=== PATIENT | female | born 1995 | race Caucasian/White ===

== ENCOUNTER 2016-08-14 19:51 | Emergency (ER) | payer MEDICAID ==
[2016-08-14] MEDS ORDERED: Famotidine 20 MG/2 ML SDV IVPUSH ONE (20:08)
[2016-08-14] MEDS ORDERED: Sodium Chloride 0.9% 1,000 ML IV ONE (20:08)
[2016-08-14] MEDS ORDERED: Sodium Chloride 0.9% 2.5 ML Syringe FLUSH PRN (20:08)
[2016-08-14] MEDS ORDERED: Sodium Chloride 0.9% 10 ML Syringe FLUSH PRN (20:08)
[2016-08-14] MEDS ORDERED: methylPREDNISolone Sodium Succinate 125 MG/2 ML SDV IVPUSH ONE (20:08)
--- NOTE | 2016-08-14 20:14 | EDM.PDOC ---
ED HPI Allergic Reaction - General Chief Complaint: Allergic Reaction Stated Complaint: PT HAS ALLERGIC REACTION, 22WKS Time Seen by Provider: 08/14/16 20:03 - History of Present Illness INITIAL COMMENTS - FREE TEXT/NARRATIVE: HISTORY AND PHYSICAL: History of present illness: The patient is a 20-year-old female was a one para zero who is 22 weeks and follows with an OB in [place] and presents with symptoms of an allergic reaction after eating garlic at dinner at 7 PM, one hour ago. According to the patient she has not had any vaginal bleeding fevers chills coughing vomiting or diarrhea and was in her usual state of good health when they went to the restaurant and ate dinner where there was a lot of garlic. The patient states she has a known allergy to garlic but she is able to eat "small amounts" without having a reaction. The meal that she had had more garlic than she had anticipated. She presents with feeling somewhat short of breath and feeling overall internally agitated but she is not having any itching or rash which is classic for her reaction. She's not having any facial swelling difficulty speaking or swallowing. She says that what she is experiencing is her symptomatology for an allergic reaction but it is just less severe than usual. She did take Benadryl 50 mg by mouth prior to coming here. She is complaining of some intermittent abdominal pain "[place]" that she says she gets periodically every week but is experiencing that currently. The baby is moving. Review of systems: As per history of present illness and below otherwise all systems reviewed and negative. Past medical history: As per history of present illness and as reviewed below otherwise noncontributory. Surgical history: As per history of present illness and as reviewed below otherwise noncontributory. Social history: No reported history of drug or alcohol abuse. Family history: As per history of present illness and as reviewed below otherwise noncontributory. Physical exam: General: A well-developed well-nourished thin female who is nontoxic and speaking clearly in the ED without breathlessness. Her medicines have been noted by me. HEENT: Atraumatic, normocephalic, pupils reactive, negative for conjunctival pallor or scleral icterus, mucous membranes moist, throat clear, neck supple, nontender, trachea midline. There is no lip tongue or oropharyngeal swelling and no facial swelling is appreciated Lungs: Clear to auscultation, breath sounds equal bilaterally, chest nontender. No sensory muscle use work of breathing stridor or wheezing Heart: S1S2, regular, negative for clicks, rubs, or JVD. Abdomen: Soft, nondistended, nontender. Gravid uterus which is nontender Negative for masses or hepatosplenomegaly. Skin: No evidence of any rashes or urticaria or lesions and turgor is normal Genitourinary: Deferred. Rectal: Deferred. Extremities: Atraumatic, negative for cords or calf pain. Neurovascular unremarkable. Neuro: Awake, alert, oriented. Cranial nerves II through XII unremarkable. Cerebellum unremarkable. Motor and sensory unremarkable throughout. Exam nonfocal. Diagnostics: [] Therapeutics: Patient took Benadryl prior to arrival, IV fluids Pepcid Solu-Medrol Labor and delivery were contacted by our nurse manufacturing supervisor at 2007; they state that once we're done treating her to send her up to labor and delivery for evaluation of her abdominal cramping 2057: Patient is feeling improved so I will transfer the patient to labor and delivery. I have advised taking Benadryl every 6 hours for the next 24 hours but I do not feel that her symptoms are significant enough for her classic presentation to put her on home prednisone. She is comfortable with this care plan. Advised on reasons to return to the ER if needed. Impression: Allergic reaction mild stable ; second trimester with episodic abdominal pain to go to labor and delivery for evaluation Definitive disposition and diagnosis as appropriate pending reevaluation and review of above. - Related Data Allergies/ADRs: Allergies Allergy/AdvReac Type Severity Reaction Status Date / Time acetaminophen [From Vicodin] Allergy Nausea Verified 08/14/16 19:57 budesonide Allergy Numbness Verified 08/14/16 19:57 garlic Allergy Shortness Verified 08/14/16 19:57 of Breath hydrocodone [From Vicodin] Allergy Nausea Verified 08/14/16 19:57 Sulfa (Sulfonamide Allergy Rash Verified 08/14/16 19:57 Antibiotics) Home Meds: Home Meds FLUoxetine HCl [Fluoxetine] 20 mg PO DAILY 08/14/16 [History] Multivitamin [Multi-Vitamin Daily] 1 tab PO DAILY 08/14/16 [History] Ondansetron HCl [Zofran] 4 mg PO ASDIRECTED 08/14/16 [History] ED ROS ALLERGIC REACTION - Review of Systems Review Of Systems: ROS reveals no pertinent complaints other than HPI. ED EXAM GENERAL NO PERIP PULSE - Physical Exam Exam: See Below (See dictation) Course - Vital Signs Last Recorded V/S: Last Vital Signs Temp 36.6 C 08/14/16 19:59 Pulse 71 08/14/16 19:59 Resp 18 08/14/16 19:59 BP 119/64 08/14/16 19:59 Pulse Ox 100 08/14/16 19:59 - Orders/Labs/Meds Orders: Active Orders 24 hr Category Date Time Status Sodium Chloride 0.9% [Normal Saline] 1,000 ml Med 08/14/16 20:08 Active IV STAT Sodium Chloride 0.9% [Saline Flush] Med 08/14/16 20:08 Active 10 ml FLUSH ASDIRECTED PRN Sodium Chloride 0.9% [Saline Flush] Med 08/14/16 20:08 Active 2.5 ml FLUSH ASDIRECTED PRN Saline Lock Insert [OM.PC] Stat Oth 08/14/16 20:08 Ordered Medication Orders Sodium Chloride (Normal Saline) 1,000 mls @ 999 mls/hr IV STAT ONE Stop: 08/14/16 21:08 Last Admin: 08/14/16 20:28 Dose: 999 mls/hr Sodium Chloride (Saline Flush) 10 ml FLUSH ASDIRECTED PRN PRN Reason: Keep Vein Open Sodium Chloride (Saline Flush) 2.5 ml FLUSH ASDIRECTED PRN PRN Reason: Keep Vein Open Meds: Medications Generic Name Dose Route Start Last Admin Trade Name Freq PRN Reason Stop Dose Admin Sodium Chloride 1,000 mls @ 999 mls/hr 08/14/16 20:08 08/14/16 20:28 Normal Saline IV 08/14/16 21:08 999 mls/hr STAT ONE Administration Sodium Chloride 10 ml 08/14/16 20:08 Saline Flush FLUSH ASDIRECTED PRN Keep Vein Open Sodium Chloride 2.5 ml 08/14/16 20:08 Saline Flush FLUSH ASDIRECTED PRN Keep Vein Open Discontinued Medications Generic Name Dose Route Start Last Admin Trade Name Freq PRN Reason Stop Dose Admin Famotidine 20 mg 08/14/16 20:08 08/14/16 20:30 Pepcid IVPUSH 08/14/16 20:09 20 mg ONETIME ONE Administration Methylprednisolone Sodium Succinate 125 mg 08/14/16 20:08 08/14/16 20:29 Solu-Medrol IVPUSH 08/14/16 20:09 125 mg ONETIME ONE Administration Departure - Departure Time of Disposition: 21:00 Disposition: DC/Tfer to Other 70 Condition: good Clinical Impression: Allergic reaction Qualifiers: Encounter type: initial encounter Qualified Code(s): T78.40XA - Allergy, unspecified, initial encounter Abdominal pain during Qualifiers: Trimester: second trimester Qualified Code(s): O26.892 - Other specified related conditions, second trimester Referrals: PCP,None [Primary Care Provider] - - My Orders Last 24 Hours: My Active Orders 08/14/16 20:08 Sodium Chloride 0.9% [Normal Saline] 1,000 ml IV STAT Sodium Chloride 0.9% [Saline Flush] 10 ml FLUSH ASDIRECTED PRN Sodium Chloride 0.9% [Saline Flush] 2.5 ml FLUSH ASDIRECTED PRN Saline Lock Insert [OM.PC] Stat - Assessment/Plan Last 24 Hours: My Active Orders 08/14/16 20:08 Sodium Chloride 0.9% [Normal Saline] 1,000 ml IV STAT Sodium Chloride 0.9% [Saline Flush] 10 ml FLUSH ASDIRECTED PRN Sodium Chloride 0.9% [Saline Flush] 2.5 ml FLUSH ASDIRECTED PRN Saline Lock Insert [OM.PC] Stat
[2016-08-14 21:25] VITALS: BP 116/67
== END 2016-08-14 21:21 | disposition other institution (70) ==
LOC: MW.ED 19:51
DX: O99.512 Diseases of the respiratory system complicating pregnancy, second trimester (principal); R06.02 Shortness of breath; T78.1XXA Other adverse food reactions, not elsewhere classified, initial encounter; O26.892 Other specified pregnancy related conditions, second trimester; R10.9 Unspecified abdominal pain; Z3A.22 22 weeks gestation of pregnancy; Z88.2 Allergy status to sulfonamides; Z88.5 Allergy status to narcotic agent; Z91.018 Allergy to other foods; Z79.899 Other long term (current) drug therapy
CPT/HCPCS: 96361; 96374; 96375; 99284; J2930; J7040

== ENCOUNTER 2016-08-14 21:29 | Outpatient (CLI) | payer MEDICAID | END 2016-08-14 22:45 | disposition home or self-care (01) | LOC: MW.OBCHECK 21:29 → MW.OB 21:39 → MW.OBCHECK 22:45 | PROVIDERS: ATTEND Obstetrics & Gynecology | DX: O47.02 False labor before 37 completed weeks of gestation, second trimester (principal) ==

== ENCOUNTER 2017-03-16 19:44 | Emergency (ER) | payer SELFPAY ==
--- NOTE | 2017-03-16 20:00 | EDM.PDOC ---
ED HPI GENERAL MEDICAL PROBLEM - General Chief Complaint: Upper Extremity Injury/Pain Stated Complaint: PT HURT LT SHOULDER Time Seen by Provider: 03/16/17 19:58 Source of Information: Reports: Patient History Limitations: Reports: No Limitations - History of Present Illness INITIAL COMMENTS - FREE TEXT/NARRATIVE: History of present illness: [21-year-old female comes in complaining of left shoulder pain. Patient indicates that she was horsing around with her boyfriend and tripped over her dog and landed full at an acute angle causing severe pain in her left shoulder she apparently tried ice and heat to no avail so she came in to be evaluated.] Review of systems: As per history of present illness and below otherwise all systems reviewed and negative. Past medical history: As per history of present illness and as reviewed below otherwise noncontributory. Surgical history: As per history of present illness and as reviewed below otherwise noncontributory. Social history: No reported history of drug or alcohol abuse. Family history: As per history of present illness and as reviewed below otherwise noncontributory. Physical exam: HEENT: Atraumatic, normocephalic, pupils reactive, negative for conjunctival pallor or scleral icterus, mucous membranes moist, throat clear, neck supple, nontender, trachea midline. Lungs: Clear to auscultation, breath sounds equal bilaterally, chest nontender. Heart: S1S2, regular, negative for clicks, rubs, or JVD. Abdomen: Soft, nondistended, nontender. Negative for masses or hepatosplenomegaly. Negative for costovertebral tenderness. Pelvis: Stable nontender. Genitourinary: Deferred. Rectal: Deferred. Extremities: Atraumatic, negative for cords or calf pain. Significant amount of guarding with left shoulder keeping arm tight to the side Neuro: Awake, alert, oriented. Cranial nerves II through XII unremarkable. Cerebellum unremarkable. Motor and sensory unremarkable throughout. Exam nonfocal. X-ray is negative for shoulder or rib bony abnormality Diagnostics: [X-ray of the left shoulder and left ribs] Therapeutics: [Toradol, Norflex] Impression: [Contusion] Plan: [[id number] and sent] Definitive disposition and diagnosis as appropriate pending reevaluation and review of above. - Related Data Allergies Allergy/AdvReac Type Severity Reaction Status Date / Time acetaminophen [From Vicodin] Allergy Nausea Verified 03/16/17 20:59 budesonide Allergy Numbness Verified 03/16/17 20:59 garlic Allergy Shortness Verified 03/16/17 20:59 of Breath hydrocodone [From Vicodin] Allergy Nausea Verified 03/16/17 20:59 Sulfa (Sulfonamide Allergy Rash Verified 03/16/17 20:59 Antibiotics) Home Meds: Home Meds Multivitamin [Multi-Vitamin Daily] 1 tab PO DAILY 08/14/16 [History] Past Medical History HEENT History: Reports: None Cardiovascular History: Reports: None Respiratory History: Reports: None Gastrointestinal History: Reports: Other (See Below) Other Gastrointestinal History: chron's Genitourinary History: Reports: None 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: 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 History: Reports: None Neurological History: Reports: None Psychiatric History: Reports: Anxiety, OCD Endocrine/Metabolic History: Reports: None Hematologic History: Reports: None Oncologic (Cancer) History: Reports: None Dermatologic History: Reports: None - Infectious Disease History Infectious Disease History: Reports: None Social & Family History - Family History Family Medical History: Noncontributory - Tobacco Use Smoking Status *Q: Never Smoker - Caffeine Use Caffeine Use: Reports: Soda - Recreational Drug Use Recreational Drug Use: No Review of Systems - Review of Systems Review Of Systems: See Below (See history of present illness) ED EXAM, GENERAL - Physical Exam Exam: See Below (History of present illness) Course - Orders/Labs/Meds Orders: Active Orders 24 hr Category Date Time Status Ribs 2V w Chest Lt [CR] Stat Exams 03/16/17 20:34 Taken Shoulder Comp Lt [CR] Stat Exams 03/16/17 19:58 Taken Departure - Departure Time of Disposition: 21:03 Disposition: Home, Self-Care 01 Condition: Good Clinical Impression: Contusion - Discharge Information Referrals: PCP,None [Primary Care Provider] - Forms: ED Department Discharge Additional Instructions: The following information is given to patients seen in the emergency department who are being discharged to home. This information is to outline your options for follow-up care. We provide all patients seen in our emergency department with a follow-up referral. The need for follow-up, as well as the timing and circumstances, are variable depending upon the specifics of your emergency department visit. If you don't have a primary care physician on staff, we will provide you with a referral. We always advise you to contact your personal physician following an emergency department visit to inform them of the circumstance of the visit and for follow-up with them and/or the need for any referrals to a consulting specialist. The emergency department will also refer you to a specialist when appropriate. This referral assures that you have the opportunity for follow-up care with a specialist. All of these measure are taken in an effort to provide you with optimal care, which includes your follow-up. Under all circumstances we always encourage you to contact your private physician who remains a resource for coordinating your care. When calling for follow-up care, please make the office aware that this follow-up is from your recent emergency room visit. If for any reason you are refused follow-up, please contact the [facility] Emergency Department at and asked to speak to the emergency department charge nurse. Your shoulder and ribs are negative for fracture at this time the pain you're having would be consistent then with a contusion You may take [id number]-fyuiwqt pain medicine such as ibuprofen or Aleve as well as alternating ice and heat for 20 minutes a time to help you with your discomfort Follow-up with primary care provider one to 2 days Return to ED as needed as discussed - My Orders Last 24 Hours: My Active Orders 03/16/17 19:58 Shoulder Comp Lt [CR] Stat - Assessment/Plan Last 24 Hours: My Active Orders 03/16/17 19:58 Shoulder Comp Lt [CR] Stat
[2017-03-16] MEDS ORDERED: Ketorolac 60 MG/2 ML SDV IM ONE (21:11)
[2017-03-16 21:47] VITALS: BP 119/71
--- NOTE | 2017-03-17 14:06 | CR ---
EXAM DATE: 03/16/17 PATIENT'S AGE: 21 Patient: SHELLEY HALE Facility: [place], [place] Site . Site : 1995 Study: XRay Chest ribs w/ chest [id number]/14/2017 8:51:58 PM Ordering Physician: Doctor Peres Final Report: INDICATION: fall TECHNIQUE: Chest 1 view and left rib series COMPARISON: None FINDINGS: Cardiovascular and mediastinum: Heart size and vasculature are normal in caliber and appearance. Mediastinum is within normal limits. Lungs and pleural space: No focal consolidation. No sign of pleural effusion. No pneumothorax. Bones and soft tissues: No significant findings. IMPRESSION: No acute cardiopulmonary disease or left-sided rib abnormality Dictated by Donaldo Mcnally MD @ 03/16/2017 8:56:50 PM Dictated by: Donaldo Mcnally MD @ 03/16/2017 20:57:00 (Electronic Signature) Report Signed by Proxy. TIERNEY
--- NOTE | 2017-03-17 14:07 | CR ---
EXAM DATE: 03/16/17 PATIENT'S AGE: 21 Patient: SHELLEY HALE Facility: [place], [place] Site . Site : 1995 Study: XRay Shoulder [id number]/[id number]/2017 8:52:14 PM Ordering Physician: Doctor Peres Final Report: INDICATION: fall TECHNIQUE: Three views of the left shoulder COMPARISON: None FINDINGS: Bones: No fractures or bone lesions. Joint spaces: Unremarkable. Soft tissues: Unremarkable. IMPRESSION: No acute bony abnormality Dictated by Donaldo Mcnally MD @ 03/16/2017 8:57:34 PM Dictated by: Donaldo Mcnally MD @ 03/16/2017 20:57:40 (Electronic Signature) Report Signed by Proxy. M[facility] HOSPITALKiersten
== END 2017-03-16 21:47 | disposition home or self-care (01) ==
LOC: MW.ED 19:44
DX: S40.012A Contusion of left shoulder, initial encounter (principal); Z88.6 Allergy status to analgesic agent; Z88.5 Allergy status to narcotic agent; Z88.2 Allergy status to sulfonamides; W01.0XXA Fall on same level from slipping, tripping and stumbling without subsequent striking against object, initial encounter
CPT/HCPCS: 71101; 73030; 96372; 99283; J1885; J2360

== ENCOUNTER 2017-05-25 14:51 | Emergency (ER) | payer SELFPAY ==
[2017-05-25] MEDS ORDERED: Sodium Chloride 0.9% 2.5 ML Syringe FLUSH PRN (15:22)
[2017-05-25] MEDS ORDERED: Sodium Chloride 0.9% 10 ML Syringe FLUSH PRN (15:22)
--- NOTE | 2017-05-25 15:26 | EDM.PDOC ---
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 Past medical history: As per history of present illness and as reviewed below otherwise noncontributory. Surgical history: As per history of present illness and as reviewed below otherwise noncontributory. Social history: No reported history of drug or alcohol abuse. Family history: As per history of present illness and as reviewed below otherwise noncontributory. Physical exam: Alert and oriented female answering questions in full sentences without any shortness of breath denies need for pain medication at this time rates her pain 4/10. HEENT: Atraumatic, normocehpalic, pupils reactive, negative for conjunctival pallor or scleral icterus, mucous membranes moist, throat clear, neck supple, nontender, trachea midline. Lungs: Clear to auscultation, breath sounds equal bilaterally, chest non tender. Heart: S1S2, regular, negative for clicks, rubs, or JVD. Abdomen: Soft, nondistended, mildly tender. No rebound and no guarding. Negative for masses or hepatossplenmegaly. Negative for costovertebral tenderness. Pelvis: Stable nontender. Genitourinary: Deferred. Rectal: Deferred Extremities: Atraumatic, negative for cords or calf pain. Neurovascular unremarkable. Neuro: Awake, alert, oriented. Cranial nerves II through XII unremarkable. Cerebellum unremarkable. Motor and sensory unremarkable throughout. Exam nonfocal. Test results are unremarkable with suggests that this is a inflammation with her Crohn's disease Diagnostics: [cbc cmp ua us abd/pelvis non-ob] Therapeutics: [] Impression: [Abdominal pain likely Crohn's disease] Plan: []Discharged to home Follow up with your primary care provider Adrenal dose pack by prescription Definitive disposition and diagnosis as appropriate pending reevaluation and review of above. Onset: Gradual Duration: Week(s): Location: Reports: Abdomen Right lower abdomen Pain Score (Numeric/FACES): 3 - Related Data Allergies Allergy/AdvReac Type Severity Reaction Status Date / Time acetaminophen [From Vicodin] Allergy Nausea Verified 05/25/17 15:12 budesonide Allergy Numbness Verified 05/25/17 15:12 garlic Allergy Shortness Verified 05/25/17 15:12 of Breath hydrocodone [From Vicodin] Allergy Nausea Verified 05/25/17 15:12 Sulfa (Sulfonamide Allergy Rash Verified 05/25/17 15:12 Antibiotics) pine trees Allergy Hives Uncoded 05/25/17 15:12 Home Meds: Home Meds buPROPion [Wellbutrin] 25 mg PO DAILY 05/25/17 [History] Past Medical History HEENT History: Reports: None Cardiovascular History: Reports: None Respiratory History: Reports: Asthma Gastrointestinal History: Reports: Other (See Below) Other Gastrointestinal History: chron's Genitourinary History: Reports: None 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: 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 History: Reports: None Neurological History: Reports: None Psychiatric History: Reports: Anxiety, Depression, OCD Endocrine/Metabolic History: Reports: None Hematologic History: Reports: None Oncologic (Cancer) History: Reports: None Dermatologic History: Reports: None - Infectious Disease History Infectious Disease History: Reports: None Social & Family History - Family History Family Medical History: Noncontributory Other Dermatologic Family History: ovarian CA - Tobacco Use Smoking Status *Q: Never Smoker Years of Tobacco use: 4 Packs/Tins Daily: 1 Second Hand Smoke Exposure: No - Caffeine Use Caffeine Use: Reports: Soda, Tea - Recreational Drug Use Recreational Drug Use: Yes Recreational Drug Type: Reports: Marijuana/Hashish Recreational Drug Use Frequency: Weekly ED ROS GENERAL - Review of Systems Review Of Systems: ROS reveals no pertinent complaints other than HPI. ED EXAM, RENAL/ - Physical Exam Exam: See Below (see dictation) Course - Vital Signs Last Recorded V/S: Last Vital Signs Temp 36.6 C 05/25/17 15:09 Pulse 110 H 05/25/17 15:09 Resp 18 05/25/17 15:09 BP 119/68 05/25/17 15:09 Pulse Ox 100 05/25/17 15:09 - Orders/Labs/Meds Orders: Active Orders 24 hr Category Date Time Status Sodium Chloride 0.9% [Saline Flush] Med 05/25/17 15:22 Active 10 ml FLUSH ASDIRECTED PRN Sodium Chloride 0.9% [Saline Flush] Med 05/25/17 15:22 Active 2.5 ml FLUSH ASDIRECTED PRN Saline Lock Insert [OM.PC] Stat Oth 05/25/17 15:22 Ordered Medication Orders Sodium Chloride (Saline Flush) 10 ml FLUSH ASDIRECTED PRN PRN Reason: Keep Vein Open Sodium Chloride (Saline Flush) 2.5 ml FLUSH ASDIRECTED PRN PRN Reason: Keep Vein Open Labs: Laboratory Tests 05/25/17 05/25/17 05/25/17 Range/Units 15:35 15:35 15:35 WBC 9.60 (4.0-11.0) K/uL RBC 4.14 L (4.30-5.90) M/uL Hgb 12.3 (12.0-16.0) g/dL Hct 37.0 (36.0-46.0) % MCV 89.4 (80.0-98.0) fL MCH 29.7 (27.0-32.0) pg MCHC 33.2 (31.0-37.0) g/dL RDW Std Deviation 43.6 (28.0-62.0) fl RDW Coeff of Zaid 13 (11.0-15.0) % Plt Count 339 (150-400) K/uL MPV 11.60 (7.40-12.00) fL Neut % (Auto) 63.6 (48.0-80.0) % Lymph % (Auto) 26.0 (16.0-40.0) % [place] % (Auto) 6.8 (0.0-15.0) % Eos % (Auto) 3.0 (0.0-7.0) % Baso % (Auto) 0.6 (0.0-1.5) % Neut # (Auto) 6.1 H (1.4-5.7) K/uL Lymph # (Auto) 2.5 H (0.6-2.4) K/uL [place] # (Auto) 0.7 (0.0-0.8) K/uL Eos # (Auto) 0.3 (0.0-0.7) K/uL Baso # (Auto) 0.1 (0.0-0.1) K/uL Nucleated RBC % 0.0 /100WBC Nucleated RBCs # 0 K/uL Sodium 142 (136-146) mmol/L Potassium 3.7 (3.5-5.1) mmol/L Chloride 107 (98-110) mmol/L Carbon Dioxide 25 (21-31) mmol/L BUN 7 (6.0-23.0) mg/dL Creatinine 0.7 (0.6-1.5) mg/dL Est Cr Clr Drug Dosing 106.05 mL/min Estimated GFR (MDRD) > 60.0 ml/min Glucose 92 (60-110) mg/dL Calcium 9.0 (8.8-10.8) mg/dL Total Bilirubin 0.4 (0.1-1.5) mg/dL AST 12 (5-40) IU/L ALT 9 (8-54) IU/L Alkaline Phosphatase 91 (40-150) Total Protein 6.9 (6.0-8.0) g/dL Albumin 4.0 (3.5-5.0) g/dL Globulin 2.9 (2.0-3.5) g/dL Albumin/Globulin Ratio 1.4 (1.3-2.8) Urine Color YELLOW Urine Appearance CLEAR Urine pH 8.0 (5.0-8.0) Ur Specific [place] 1.010 (1.001-1.035) Urine Protein NEGATIVE (NEGATIVE) mg/dL Urine Glucose (UA) NEGATIVE (NEGATIVE) mg/dL Urine Ketones NEGATIVE (NEGATIVE) mg/dL Urine Occult Blood NEGATIVE (NEGATIVE) Urine Nitrite NEGATIVE (NEGATIVE) Urine Bilirubin NEGATIVE (NEGATIVE) Urine Urobilinogen 0.2 (<2.0) EU/dL Ur Leukocyte Esterase NEGATIVE (NEGATIVE) Urine RBC 0-1 (0-2/HPF) Urine WBC 0-1 (0-5/HPF) Ur Epithelial Cells OCCASIONAL (NONE-FEW) Urine Bacteria RARE (NEGATIVE) Meds: Medications Generic Name Dose Route Start Last Admin Trade Name Freq PRN Reason Stop Dose Admin Sodium Chloride 10 ml 05/25/17 15:22 Saline Flush FLUSH ASDIRECTED PRN Keep Vein Open Sodium Chloride 2.5 ml 05/25/17 15:22 Saline Flush FLUSH ASDIRECTED PRN Keep Vein Open Departure - Departure Time of Disposition: 16:50 Disposition: Home, Self-Care 01 Condition: Good Clinical Impression: Abdominal pain Qualifiers: Abdominal location: right lower quadrant Qualified Code(s): R10.31 - Right lower quadrant pain - Discharge Information Referrals: PCP,None [Primary Care Provider] - Forms: ED Department Discharge - My Orders Last 24 Hours: My Active Orders 05/25/17 15:22 Sodium Chloride 0.9% [Saline Flush] 10 ml FLUSH ASDIRECTED PRN Sodium Chloride 0.9% [Saline Flush] 2.5 ml FLUSH ASDIRECTED PRN Saline Lock Insert [OM.PC] Stat - Assessment/Plan Last 24 Hours: My Active Orders 05/25/17 15:22 Sodium Chloride 0.9% [Saline Flush] 10 ml FLUSH ASDIRECTED PRN Sodium Chloride 0.9% [Saline Flush] 2.5 ml FLUSH ASDIRECTED PRN Saline Lock Insert [OM.PC] Stat
[2017-05-25 16:16] LABS: CHLORIDE,CL 107 mmol/L (98-110); SODIUM,NA 142 mmol/L (136-146)
--- NOTE | 2017-05-25 16:31 | US ---
EXAMINATION: Transabdominal pelvic ultrasound HISTORY: Pain COMPARISON: None TECHNIQUE: Grayscale, color Doppler, and spectral Doppler imaging obtained transabdominally. FINDINGS: The uterus is normal in size, contour, and echogenicity with an IUD noted. Endometrial stri pe otherwise measures 5 mm. Trace physiologic free fluid. Both the left and right ovaries are normal size, contour, and echogenicity demonstrating normal color and spectral Doppler flow. Simple 2.9 cm left ovarian cyst is noted. IMPRESSION: 1. Grossly unremarkable pelvic ultrasound. 2. IUD noted within the uterus in place.
[2017-05-25 17:03] VITALS: BP 109/64
== END 2017-05-25 17:03 | disposition home or self-care (01) ==
LOC: MW.ED 14:51
DX: R10.31 Right lower quadrant pain (principal); Z88.8 Allergy status to other drugs, medicaments and biological substances; Z88.2 Allergy status to sulfonamides; Z91.048 Other nonmedicinal substance allergy status; Z79.899 Other long term (current) drug therapy
CPT/HCPCS: 36415; 76856; 76856-26; 80053; 81001; 85025; 99283; 99284-25

== ENCOUNTER 2017-06-19 21:24 | Observation (INO) | payer SELFPAY ==
--- NOTE | 2017-06-19 21:37 | EDM.PDOC ---
ED HPI GENERAL MEDICAL PROBLEM - General Chief Complaint: Abdominal Pain Stated Complaint: CHROMES DISEASE FLARE UP Time Seen by Provider: 06/19/17 21:32 - History of Present Illness INITIAL COMMENTS - FREE TEXT/NARRATIVE: HISTORY AND PHYSICAL: History of present illness: Patient's 21-year-old female history of Crohn's disease presents with a concern of abdominal pain she states this is consistent with her prior Crohn's exacerbations that she has been relatively asymptomatic during her recent past . She's had nausea and vomiting with abdominal pain she denies fever chills diarrhea or other complaints at this point. She denies urinary symptoms vaginal discharge or irregular bleeding Review of systems: As per history of present illness and below otherwise all systems reviewed and negative. Past medical history: As per history of present illness and as reviewed below otherwise noncontributory. Surgical history: As per history of present illness and as reviewed below otherwise noncontributory. Social history: No reported history of drug or alcohol abuse. Family history: As per history of present illness and as reviewed below otherwise noncontributory. Physical exam: HEENT: Atraumatic, normocephalic, pupils reactive, negative for conjunctival pallor or scleral icterus, mucous membranes moist, throat clear, neck supple, nontender, trachea midline. Lungs: Clear to auscultation, breath sounds equal bilaterally, chest nontender. Heart: S1S2, regular, negative for clicks, rubs, or JVD. Abdomen: Soft, nondistended, no localized tenderness. Negative for masses or hepatosplenomegaly. Negative for costovertebral tenderness. Pelvis: Stable nontender. Genitourinary: Deferred. Rectal: Deferred. Extremities: Atraumatic, negative for cords or calf pain. Neurovascular unremarkable. Neuro: Awake, alert, oriented. Cranial nerves II through XII unremarkable. Cerebellum unremarkable. Motor and sensory unremarkable throughout. Exam nonfocal. Diagnostics: CBC CMP UA hCG CRP CT abdomen and pelvis Therapeutics: Normal saline 1 L bolus Zofran 4 mg IV when necessary Impression: #1 abdominal pain #2 history of Crohn's disease Definitive disposition and diagnosis as appropriate pending reevaluation and review of above. Abdominal Pain Score (Numeric/FACES): 5 - Related Data Allergies Allergy/AdvReac Type Severity Reaction Status Date / Time acetaminophen [From Vicodin] Allergy Nausea Verified 05/25/17 15:12 budesonide Allergy Numbness Verified 05/25/17 15:12 garlic Allergy Shortness Verified 05/25/17 15:12 of Breath hydrocodone [From Vicodin] Allergy Nausea Verified 05/25/17 15:12 Sulfa (Sulfonamide Allergy Rash Verified 05/25/17 15:12 Antibiotics) pine trees Allergy Hives Uncoded 05/25/17 15:12 Home Meds: Home Meds buPROPion [Wellbutrin] 25 mg PO DAILY 05/25/17 [History] Past Medical History HEENT History: Reports: None Cardiovascular History: Reports: None Respiratory History: Reports: Asthma Gastrointestinal History: Reports: Other (See Below) Other Gastrointestinal History: chron's Genitourinary History: Reports: None 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: 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 History: Reports: None Neurological History: Reports: None Psychiatric History: Reports: Anxiety, Depression, OCD Endocrine/Metabolic History: Reports: None Hematologic History: Reports: None Oncologic (Cancer) History: Reports: None Dermatologic History: Reports: None - Infectious Disease History Infectious Disease History: Reports: None Social & Family History - Family History Family Medical History: Noncontributory Other Dermatologic Family History: ovarian CA - Tobacco Use Smoking Status *Q: Never Smoker Years of Tobacco use: 4 Packs/Tins Daily: 1 Second Hand Smoke Exposure: No - Caffeine Use Caffeine Use: Reports: Soda, Tea - Recreational Drug Use Recreational Drug Use: Yes Recreational Drug Type: Reports: Marijuana/Hashish Recreational Drug Use Frequency: Weekly ED ROS GENERAL - Review of Systems Review Of Systems: ROS reveals no pertinent complaints other than HPI. ED EXAM, GENERAL - Physical Exam Exam: See Below (See dictation) Course - Vital Signs Last Recorded V/S: Last Vital Signs Temp 37.4 C 06/19/17 21:24 Pulse 105 H 06/19/17 21:24 Resp 16 06/19/17 21:24 BP 128/81 06/19/17 21:24 Pulse Ox 100 06/19/17 21:24 - Orders/Labs/Meds Orders: Active Orders 24 hr Category Date Time Status Abdomen Pelvis wo Cont [CT] Stat Exams 06/19/17 21:37 Taken Labs: Laboratory Tests 06/19/17 06/19/17 06/19/17 Range/Units 21:40 21:40 22:10 WBC 14.36 H (4.0-11.0) K/uL RBC 4.40 (4.30-5.90) M/uL Hgb 13.0 (12.0-16.0) g/dL Hct 38.5 (36.0-46.0) % MCV 87.5 (80.0-98.0) fL MCH 29.5 (27.0-32.0) pg MCHC 33.8 (31.0-37.0) g/dL RDW Std Deviation 42.4 (28.0-62.0) fl RDW Coeff of Zaid 13 (11.0-15.0) % Plt Count 465 H (150-400) K/uL MPV 11.10 (7.40-12.00) fL Neut % (Auto) 70.6 (48.0-80.0) % Lymph % (Auto) 19.0 (16.0-40.0) % [place] % (Auto) 8.1 (0.0-15.0) % Eos % (Auto) 2.0 (0.0-7.0) % Baso % (Auto) 0.3 (0.0-1.5) % Neut # (Auto) 10.1 H (1.4-5.7) K/uL Lymph # (Auto) 2.7 H (0.6-2.4) K/uL [place] # (Auto) 1.2 H (0.0-0.8) K/uL Eos # (Auto) 0.3 (0.0-0.7) K/uL Baso # (Auto) 0.1 (0.0-0.1) K/uL Nucleated RBC % 0.0 /100WBC Nucleated RBCs # 0 K/uL Sodium 140 (136-146) mmol/L Potassium 3.8 (3.5-5.1) mmol/L Chloride 105 (98-110) mmol/L Carbon Dioxide 25 (21-31) mmol/L BUN 11 (6.0-23.0) mg/dL Creatinine 0.7 (0.6-1.5) mg/dL Est Cr Clr Drug Dosing 106.05 mL/min Estimated GFR (MDRD) > 60.0 ml/min Glucose 99 (60-110) mg/dL Calcium 9.3 (8.8-10.8) mg/dL Total Bilirubin 0.4 (0.1-1.5) mg/dL AST 11 (5-40) IU/L ALT 9 (8-54) IU/L Alkaline Phosphatase 104 (40-150) C-Reactive Protein 3.75 H (0.0-0.5) mg/dL Total Protein 7.1 (6.0-8.0) g/dL Albumin 4.1 (3.5-5.0) g/dL Globulin 3.0 (2.0-3.5) g/dL Albumin/Globulin Ratio 1.4 (1.3-2.8) Lipase 14 (7-80) U/L Urine Color YELLOW Urine Appearance CLEAR Urine pH 6.0 (5.0-8.0) Ur Specific [place] 1.020 (1.001-1.035) Urine Protein NEGATIVE (NEGATIVE) mg/dL Urine Glucose (UA) NEGATIVE (NEGATIVE) mg/dL Urine Ketones NEGATIVE (NEGATIVE) mg/dL Urine Occult Blood NEGATIVE (NEGATIVE) Urine Nitrite NEGATIVE (NEGATIVE) Urine Bilirubin NEGATIVE (NEGATIVE) Urine Urobilinogen 1.0 (<2.0) EU/dL Ur Leukocyte Esterase NEGATIVE (NEGATIVE) Urine RBC 0-2 (0-2/HPF) Urine WBC 1-3 (0-5/HPF) Ur Epithelial Cells FEW (NONE-FEW) Amorphous Sediment FEW (NEGATIVE) Urine Bacteria FEW (NEGATIVE) Urine Mucus MODERATE (NONE-MOD) Urine HCG, Qual (NEGATIVE) 06/19/17 Range/Units 22:16 WBC (4.0-11.0) K/uL RBC (4.30-5.90) M/uL Hgb (12.0-16.0) g/dL Hct (36.0-46.0) % MCV (80.0-98.0) fL MCH (27.0-32.0) pg MCHC (31.0-37.0) g/dL RDW Std Deviation (28.0-62.0) fl RDW Coeff of Zaid (11.0-15.0) % Plt Count (150-400) K/uL MPV (7.40-12.00) fL Neut % (Auto) (48.0-80.0) % Lymph % (Auto) (16.0-40.0) % [place] % (Auto) (0.0-15.0) % Eos % (Auto) (0.0-7.0) % Baso % (Auto) (0.0-1.5) % Neut # (Auto) (1.4-5.7) K/uL Lymph # (Auto) (0.6-2.4) K/uL [place] # (Auto) (0.0-0.8) K/uL Eos # (Auto) (0.0-0.7) K/uL Baso # (Auto) (0.0-0.1) K/uL Nucleated RBC % /100WBC Nucleated RBCs # K/uL Sodium (136-146) mmol/L Potassium (3.5-5.1) mmol/L Chloride (98-110) mmol/L Carbon Dioxide (21-31) mmol/L BUN (6.0-23.0) mg/dL Creatinine (0.6-1.5) mg/dL Est Cr Clr Drug Dosing mL/min Estimated GFR (MDRD) ml/min Glucose (60-110) mg/dL Calcium (8.8-10.8) mg/dL Total Bilirubin (0.1-1.5) mg/dL AST (5-40) IU/L ALT (8-54) IU/L Alkaline Phosphatase (40-150) C-Reactive Protein (0.0-0.5) mg/dL Total Protein (6.0-8.0) g/dL Albumin (3.5-5.0) g/dL Globulin (2.0-3.5) g/dL Albumin/Globulin Ratio (1.3-2.8) Lipase (7-80) U/L Urine Color Urine Appearance Urine pH (5.0-8.0) Ur Specific [place] (1.001-1.035) Urine Protein (NEGATIVE) mg/dL Urine Glucose (UA) (NEGATIVE) mg/dL Urine Ketones (NEGATIVE) mg/dL Urine Occult Blood (NEGATIVE) Urine Nitrite (NEGATIVE) Urine Bilirubin (NEGATIVE) Urine Urobilinogen (<2.0) EU/dL Ur Leukocyte Esterase (NEGATIVE) Urine RBC (0-2/HPF) Urine WBC (0-5/HPF) Ur Epithelial Cells (NONE-FEW) Amorphous Sediment (NEGATIVE) Urine Bacteria (NEGATIVE) Urine Mucus (NONE-MOD) Urine HCG, Qual NEGATIVE (NEGATIVE) Meds: Medications Discontinued Medications Generic Name Dose Route Start Last Admin Trade Name Hattie PRN Reason Stop Dose Admin Hydromorphone HCl 2 mg 06/19/17 23:13 06/19/17 23:20 Dilaudid IVPUSH 06/19/17 23:14 2 mg ONETIME ONE Administration Sodium Chloride 1,000 mls @ 999 mls/hr 06/19/17 21:38 06/19/17 21:46 Normal Saline IV 06/19/17 22:38 999 mls/hr STAT ONE Administration Ondansetron HCl 4 mg 06/19/17 23:15 06/19/17 23:20 Zofran IVPUSH 06/19/17 23:16 4 mg ONETIME ONE Administration Departure - Departure Time of Disposition: 23:39 Disposition: Refer to Observation Condition: Good Clinical Impression: Exacerbation of Crohn's disease - Discharge Information Referrals: PCP,None [Primary Care Provider] - Forms: ED Department Discharge - My Orders Last 24 Hours: My Active Orders 06/19/17 21:37 Abdomen Pelvis wo Cont [CT] Stat - Assessment/Plan Last 24 Hours: My Active Orders 06/19/17 21:37 Abdomen Pelvis wo Cont [CT] Stat
[2017-06-19] MEDS ORDERED: Sodium Chloride 0.9% 1,000 ML IV ONE (21:38)
[2017-06-19 22:10] LABS: CHLORIDE,CL 105 mmol/L (98-110); SODIUM,NA 140 mmol/L (136-146)
[2017-06-19] MEDS ORDERED: HYDROmorphone 2 MG/ML SDV IVPUSH ONE (23:13)
[2017-06-19] MEDS ORDERED: Ondansetron 4 MG/2 ML SDV IVPUSH ONE (23:15)
[2017-06-19] MEDS ORDERED: methylPREDNISolone Sodium Succinate 125 MG/2 ML SDV IVPUSH ONE (23:45)
[2017-06-19] MEDS ORDERED: methylPREDNISolone Sodium Succinate 125 MG/2 ML SDV ONE (23:45)
[2017-06-20] MEDS: Sodium Chloride 0.9% 1,000 ML IV SCH ×3 (01:38→21:18)
[2017-06-20] MEDS: Ciprofloxacin in D5W 400 MG in Premix Bag 1 BAG IV SCH ×4 (01:51→12:09)
[2017-06-20] MEDS: metroNIDAZOLE/Normal Saline 500 MG in Premix Bag 1 BAG IV SCH ×3 (02:55→17:19)
[2017-06-20] MEDS: HYDROmorphone 1 MG/ML Syringe IVPUSH PRN ×5 (05:42→22:47)
[2017-06-20 06:38] LABS: CHLORIDE,CL 110 mmol/L (98-110); SODIUM,NA 139 mmol/L (136-146)
[2017-06-20] MEDS: methylPREDNISolone Sodium Succinate 40 MG/1 ML SDV IVPUSH SCH (12:08)
--- NOTE | 2017-06-20 12:08 | PCM.HP ---
H&P History of Present Illness - History of Present Illness Initial Comments - Free Text/Narative: 21 yo female with pmh of Crohn's disease who presents with four day history of abdominal pain and diarrhea. Yesterday she started vomiting. She is on no medications for her Crohn's disease and had not had a flair for over a year and a half. She reports some fevers and chills. She denies any shortness of breath or cough. CT scan of abdomen reported terminal ileitis. Abdominal Pain Score (Numeric/FACES): 8 - Related Data Allergies/Adverse Reactions: Allergies Allergy/AdvReac Type Severity Reaction Status Date / Time acetaminophen [From Vicodin] Allergy Nausea Verified 05/25/17 15:12 budesonide Allergy Numbness Verified 05/25/17 15:12 garlic Allergy Shortness Verified 05/25/17 15:12 of Breath hydrocodone [From Vicodin] Allergy Nausea Verified 05/25/17 15:12 Sulfa (Sulfonamide Allergy Rash Verified 05/25/17 15:12 Antibiotics) pine trees Allergy Hives Uncoded 05/25/17 15:12 Home Medications: Home Meds buPROPion [Wellbutrin] 25 mg PO DAILY 05/25/17 [History] Past Medical History - Past Health History Medical/Surgical History: Denies Medical/Surgical History HEENT History: Reports: None Cardiovascular History: Reports: None Respiratory History: Reports: Asthma Gastrointestinal History: Reports: Other (See Below) Other Gastrointestinal History: chron's Genitourinary History: Reports: None 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: 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 History: Reports: Back Pain, Chronic Neurological History: Reports: None Psychiatric History: Reports: Anxiety, Depression, OCD Endocrine/Metabolic History: Reports: None Hematologic History: Reports: None Oncologic (Cancer) History: Reports: None Dermatologic History: Reports: None - Infectious Disease History Infectious Disease History: Reports: None - Past Surgical History GI Surgical History: Reports: Colonoscopy, EGD Social & Family History - Family History Family Medical History: Noncontributory Other Dermatologic Family History: ovarian CA - Tobacco Use Smoking Status *Q: Former Smoker Years of Tobacco use: 4 Packs/Tins Daily: 1 Used Tobacco, but Quit: Yes Month Tobacco Last Used: March Tobacco Use Comment: former smoker, last smoke 2016 Second Hand Smoke Exposure: No - Caffeine Use Caffeine Use: Reports: Soda - Recreational Drug Use Recreational Drug Use: No Recreational Drug Type: Reports: Marijuana/Hashish, Other (see below) Other Recreational Drug Type: patient verbalized NCBD cream for her back that contains Marijuana Recreational Drug Use Frequency: Weekly H&P Review of Systems - Review of Systems: Review Of Systems: ROS reveals no pertinent complaints other than HPI. Exam - Exam Exam: See Below - Vital Signs Vital Signs: Last Vital Signs Temp 36.7 C 06/20/17 08:00 Pulse 77 06/20/17 08:00 Resp 14 06/20/17 08:00 BP 123/79 06/20/17 08:00 Pulse Ox 99 06/20/17 08:00 Weight: 53.342 kg - Exam General: Alert, Oriented Lungs: Clear to Auscultation, Normal Respiratory Effort Cardiovascular: Regular Rate, Regular Rhythm GI/Abdominal Exam: Soft, Non-Tender, No Distention Extremities: Non-Tender, No Pedal Edema Skin: Warm, Dry, Intact Neurological: No: Focal Deficit - Patient Data Lab Results Last 24 hrs: Laboratory Results - last 24 hr 06/20/17 06/20/17 Range/Units 06:04 06:04 WBC 13.12 H (4.0-11.0) K/uL RBC 4.17 L (4.30-5.90) M/uL Hgb 12.3 (12.0-16.0) g/dL Hct 36.5 (36.0-46.0) % MCV 87.5 (80.0-98.0) fL MCH 29.5 (27.0-32.0) pg MCHC 33.7 (31.0-37.0) g/dL RDW Std Deviation 42.0 (28.0-62.0) fl RDW Coeff of Zaid 13 (11.0-15.0) % Plt Count 419 H (150-400) K/uL MPV 11.10 (7.40-12.00) fL Neut % (Auto) 93.3 H (48.0-80.0) % Lymph % (Auto) 5.7 L (16.0-40.0) % [place] % (Auto) 0.8 (0.0-15.0) % Eos % (Auto) 0.0 (0.0-7.0) % Baso % (Auto) 0.2 (0.0-1.5) % Neut # (Auto) 12.3 H (1.4-5.7) K/uL Lymph # (Auto) 0.8 (0.6-2.4) K/uL [place] # (Auto) 0.1 (0.0-0.8) K/uL Eos # (Auto) 0.0 (0.0-0.7) K/uL Baso # (Auto) 0.0 (0.0-0.1) K/uL Nucleated RBC % 0.0 /100WBC Nucleated RBCs # 0 K/uL Sodium 139 (136-146) mmol/L Potassium 3.5 (3.5-5.1) mmol/L Chloride 110 (98-110) mmol/L Carbon Dioxide 20 L (21-31) mmol/L BUN 9 (6.0-23.0) mg/dL Creatinine 0.7 (0.6-1.5) mg/dL Est Cr Clr Drug Dosing 106.01 mL/min Estimated GFR (MDRD) > 60.0 ml/min Glucose 141 H (60-110) mg/dL Calcium 8.8 (8.8-10.8) mg/dL Total Bilirubin 0.4 (0.1-1.5) mg/dL AST 13 (5-40) IU/L ALT 10 (8-54) IU/L Alkaline Phosphatase 100 (40-150) Total Protein 6.5 (6.0-8.0) g/dL Albumin 3.7 (3.5-5.0) g/dL Globulin 2.8 (2.0-3.5) g/dL Albumin/Globulin Ratio 1.3 (1.3-2.8) Result Diagrams: 06/20/17 06:04 06/20/17 06:04 *Q Meaningful Use (ADM) - VTE *Q VTE Criteria *Q: - Stroke *Q Stroke Criteria *Q: - AMI *Q AMI Criteria *Q: Problem List Initiated/Reviewed/Updated: Yes Orders Last 24hrs: Active Orders 24 hr Category Date Time Status Antiembolic Devices [RC] PER UNIT ROUTINE Care 06/20/17 12:03 Ordered Intake and Output [RC] QSHIFT Care 06/20/17 12:03 Ordered Oxygen Therapy [RC] PRN Care 06/20/17 12:02 Ordered Up ad Marianne [RC] ASDIRECTED Care 06/20/17 12:02 Ordered VTE/DVT Education [RC] PER UNIT ROUTINE Care 06/20/17 12:02 Ordered Vital Signs [RC] Q4H Care 06/20/17 12:02 Ordered Clear Liquid Diet [DIET] Diet 06/20/17 Dinner Ordered Clear Liquid Diet [DIET] Diet 06/20/17 Lunch Active CBC WITH AUTO DIFF [HEME] AM Lab 06/21/17 05:11 Ordered COMPREHENSIVE METABOLIC PN,CMP [CHEM] AM Lab 06/21/17 05:11 Ordered Ciprofloxacin in D5W [Cipro in D5W 400 MG/200 ML] 400 Med 06/20/17 01:00 Active mg Premix Bag 1 bag IV Q12H HYDROmorphone [Dilaudid] Med 06/20/17 02:00 Active 1 mg IVPUSH Q3H PRN Ondansetron [Zofran] Med 06/20/17 03:00 Active 4 mg IVPUSH Q3H PRN Sodium Chloride 0.9% [Normal Saline] 1,000 ml Med 06/20/17 01:30 Active IV ASDIRECTED methylPREDNISolone Sod Succ [Solu-MEDROL] Med 06/20/17 12:15 Ordered 40 mg IVPUSH DAILY metroNIDAZOLE/Normal Saline [Flagyl 500 MG in NS 100 ML Med 06/20/17 02:00 Active ] 500 mg Premix Bag 1 bag IV Q8H Sequential Compression Device [OM.PC] Per Unit Routine Oth 06/20/17 12:03 Ordered Resuscitation Status Routine Resus Stat 06/20/17 12:02 Ordered Medication Orders Hydromorphone HCl (Dilaudid) 1 mg IVPUSH Q3H PRN PRN Reason: Pain Last Admin: 06/20/17 08:13 Dose: 1 mg Admin: 06/20/17 05:42 Dose: 1 mg Ciprofloxacin/Dextrose 400 mg/ (Premix) 200 mls @ 200 mls/hr IV Q12H [facility] Last Infusion: 06/20/17 02:54 Dose: 200 mls/hr Admin: 06/20/17 01:51 Dose: 200 mls/hr Metronidazole 500 mg/ Premix 100 mls @ 100 mls/hr IV Q8H [facility] Last Admin: 06/20/17 10:17 Dose: 100 mls/hr Infusion: 06/20/17 04:00 Dose: 100 mls/hr Admin: 06/20/17 02:55 Dose: 100 mls/hr Sodium Chloride (Normal Saline) 1,000 mls @ 125 mls/hr IV ASDIRECTED [facility] Last Admin: 06/20/17 01:38 Dose: 125 mls/hr Methylprednisolone Sodium Succinate (Solu-Medrol) 40 mg IVPUSH DAILY [facility] Ondansetron HCl (Zofran) 4 mg IVPUSH Q3H PRN PRN Reason: Nausea/Vomiting Assessment/Plan Comment:: 21 yo female admitted with Crohn's flair. We will treat with IV fluids, Ciprofloxacin, Flagyl and solumedrol 40mg.
[2017-06-20] MEDS ORDERED: buPROPion 100 MG Tab PO SCH (12:15)
[2017-06-20] MEDS: buPROPion 100 MG Tab PO SCH (12:40)
[2017-06-21] MEDS: Ciprofloxacin in D5W 400 MG in Premix Bag 1 BAG IV SCH ×4 (01:05→12:51)
[2017-06-21] MEDS: HYDROmorphone 1 MG/ML Syringe IVPUSH PRN ×5 (02:16→20:30)
[2017-06-21] MEDS: metroNIDAZOLE/Normal Saline 500 MG in Premix Bag 1 BAG IV SCH ×3 (02:36→17:26)
[2017-06-21 06:00] LABS: CHLORIDE,CL 111 mmol/L (98-110); SODIUM,NA 141 mmol/L (136-146)
[2017-06-21] MEDS: Ondansetron 4 MG/2 ML SDV IVPUSH PRN (06:02)
[2017-06-21] MEDS: Sodium Chloride 0.9% 1,000 ML IV SCH ×2 (07:49→18:29)
--- NOTE | 2017-06-21 09:40 | PCM.PN ---
- General Info Date of Service: 06/21/17 Subjective Update: Patient doing better then on her admission. States that she still has abdominal pain secondary to her acute Crohn's disease flareup. Patient stated that she was able to mildly tolerated her clear liquid diet however she was nauseated when trying to the jello. She has been requiring Zofran every 4 hours, she also has Dilaudid 1 mg so far she has received 1 dose. No further vomiting, or diarrhea presently. - Review of Systems General: Reports: Weakness HEENT: Reports: No Symptoms Pulmonary: Reports: No Symptoms Cardiovascular: Reports: No Symptoms Gastrointestinal: Reports: Abdominal Pain, Nausea - Patient Data Vitals - Most Recent: Last Vital Signs Temp 36.6 C 06/21/17 08:00 Pulse 65 06/21/17 08:00 Resp 16 06/21/17 08:00 BP 122/87 06/21/17 08:00 Pulse Ox 100 06/21/17 08:00 Weight - Most Recent: 53.342 kg I&O - Last 24 Hours: Intake & Output 06/20/17 06/21/17 06/21/17 22:59 06:59 14:59 Intake Total 1460 800 Output Total 750 1200 Balance 710 -400 Lab Results Last 24 Hours: Laboratory Results - last 24 hr 06/21/17 06/21/17 Range/Units 05:23 05:23 WBC 16.10 H (4.0-11.0) K/uL RBC 3.83 L (4.30-5.90) M/uL Hgb 11.2 L (12.0-16.0) g/dL Hct 33.6 L (36.0-46.0) % MCV 87.7 (80.0-98.0) fL MCH 29.2 (27.0-32.0) pg MCHC 33.3 (31.0-37.0) g/dL RDW Std Deviation 42.5 (28.0-62.0) fl RDW Coeff of Zaid 13 (11.0-15.0) % Plt Count 384 (150-400) K/uL MPV 11.20 (7.40-12.00) fL Neut % (Auto) 76.7 (48.0-80.0) % Lymph % (Auto) 15.3 L (16.0-40.0) % [place] % (Auto) 7.9 (0.0-15.0) % Eos % (Auto) 0.0 (0.0-7.0) % Baso % (Auto) 0.1 (0.0-1.5) % Neut # (Auto) 12.4 H (1.4-5.7) K/uL Lymph # (Auto) 2.5 H (0.6-2.4) K/uL [place] # (Auto) 1.3 H (0.0-0.8) K/uL Eos # (Auto) 0.0 (0.0-0.7) K/uL Baso # (Auto) 0.0 (0.0-0.1) K/uL Nucleated RBC % 0.0 /100WBC Nucleated RBCs # 0 K/uL Sodium 141 (136-146) mmol/L Potassium 4.0 (3.5-5.1) mmol/L Chloride 111 H (98-110) mmol/L Carbon Dioxide 23 (21-31) mmol/L BUN 5 L (6.0-23.0) mg/dL Creatinine 0.6 (0.6-1.5) mg/dL Est Cr Clr Drug Dosing 123.68 mL/min Estimated GFR (MDRD) > 60.0 ml/min Glucose 106 (60-110) mg/dL Calcium 8.6 L (8.8-10.8) mg/dL Total Bilirubin 0.3 (0.1-1.5) mg/dL AST 9 (5-40) IU/L ALT 6 L (8-54) IU/L Alkaline Phosphatase 78 (40-150) Total Protein 5.4 L (6.0-8.0) g/dL Albumin 3.2 L (3.5-5.0) g/dL Globulin 2.2 (2.0-3.5) g/dL Albumin/Globulin Ratio 1.5 (1.3-2.8) Med Orders - Current: Current Medications Bupropion HCl (Wellbutrin) 75 mg PO DAILY [facility] Last Admin: 06/20/17 12:40 Dose: 75 mg Hydromorphone HCl (Dilaudid) 1 mg IVPUSH Q3H PRN PRN Reason: Pain Last Admin: 06/21/17 05:54 Dose: 1 mg Ciprofloxacin/Dextrose 400 mg/ (Premix) 200 mls @ 200 mls/hr IV Q12H [facility] Last Infusion: 06/21/17 02:05 Dose: Infused Metronidazole 500 mg/ Premix 100 mls @ 100 mls/hr IV Q8H [facility] Last Infusion: 06/21/17 03:40 Dose: Infused Sodium Chloride (Normal Saline) 1,000 mls @ 125 mls/hr IV ASDIRECTED [facility] Last Admin: 06/21/17 07:49 Dose: 125 mls/hr Methylprednisolone Sodium Succinate (Solu-Medrol) 40 mg IVPUSH DAILY [facility] Last Admin: 06/20/17 12:08 Dose: 40 mg Ondansetron HCl (Zofran) 4 mg IVPUSH Q3H PRN PRN Reason: Nausea/Vomiting Last Admin: 06/21/17 06:02 Dose: 4 mg Discontinued Medications Bupropion HCl (Wellbutrin) 25 mg PO DAILY [facility] Last Admin: 06/20/17 12:39 Dose: Not Given Hydromorphone HCl (Dilaudid) 2 mg IVPUSH ONETIME ONE Stop: 06/19/17 23:14 Last Admin: 06/19/17 23:20 Dose: 2 mg Sodium Chloride (Normal Saline) 1,000 mls @ 999 mls/hr IV STAT ONE Stop: 06/19/17 22:38 Last Admin: 06/19/17 21:46 Dose: 999 mls/hr Methylprednisolone Sodium Succinate (Solu-Medrol) 125 mg IVPUSH ONETIME ONE Stop: 06/19/17 23:46 Last Admin: 06/19/17 23:46 Dose: 125 mg Methylprednisolone Sodium Succinate (Solu-Medrol) Confirm Administered Dose 125 mg .ROUTE .STK-MED ONE Stop: 06/19/17 23:46 Last Admin: 06/20/17 01:17 Dose: Not Given Ondansetron HCl (Zofran) 4 mg IVPUSH ONETIME ONE Stop: 06/19/17 23:16 Last Admin: 06/19/17 23:20 Dose: 4 mg - Exam General: Alert, Oriented, Mild Distress Lungs: Clear to Auscultation, Normal Respiratory Effort Cardiovascular: Regular Rate, Regular Rhythm GI/Abdominal Exam: Tender Extremities: Normal Inspection, No Pedal Edema - Problem List Review Problem List Initiated/Reviewed/Updated: Yes - Plan Plan:: 21 -year-old female presenting with acute Crohn's disease flareup. - Continue patient on IV fluids, ciprofloxacin 400 mg every 12 hours, metronidazole 500 mg every 8 hours, Solu-Medrol IV 40 mg every daily - Pain control with Dilaudid 1 mg every 3 hours, Zofran 4 mg IV every 4 hours - Progress diet as tolerated, patient presently on clear liquid diet shall advance the diet to soft/mechanical and see if the patient can tolerate it. -
[2017-06-21] MEDS: buPROPion 100 MG Tab PO SCH (10:20)
[2017-06-21] MEDS: methylPREDNISolone Sodium Succinate 40 MG/1 ML SDV IVPUSH SCH (10:21)
--- NOTE | 2017-06-21 18:01 | CT ---
EXAM DATE: 06/20/17 PATIENT'S AGE: 21 Patient: SHELLEY HALE Facility: [place], [place] Site . Site : 1996 Study: CT Abdomen/Pelvis WO CONT [id number] 10:42:47 PM Ordering Physician: Bertha Nicolas Final Report: INDICATION: Abdominal pain with nausea, vomiting and diarrhea. History of Crohn`s disease. TECHNIQUE: Volumetric helical scanning of the abdomen and pelvis was performed without contrast material. Coronal and sagittal reconstructions were obtained. COMPARISON: None FINDINGS: There is mild to moderate circumferential wall thickening of the terminal ileum over a length of 15-20 cm, consistent with Crohn`s disease. No obstruction is evident. Some stranding in the fat surrounding the distal end of the terminal ileum is noted. No abscess or obvious fistula is identified. Small amount of free fluid is noted in the pelvis. No free air is demonstrated. The liver is normal in size, shape and attenuation. No bile duct dilation is evident. The spleen is within normal limits. The adrenal glands are unremarkable. The pancreas is within normal limits. The kidneys are unremarkable except for a 2 mm right renal collecting system stone. No lymphadenopathy is evident. An IUD is present in the uterus grade uterus and ovaries are otherwise grossly negative. The lung bases are clear. The heart is normal in size. IMPRESSION: 1. Terminal ileitis, consistent with Crohn`s disease. Some stranding around the distal aspect of the terminal ileum is noted, possibly due to active inflammation. Consider MR or CT enterography. 2. Small moderate free fluid in the pelvis. No obvious abscess or free air. 3. 2 mm right renal collecting system stone. 4. IUD in the uterus. Please note that all CT scans at this facility use dose modulation, iterative reconstruction, and/or weight-based dosing when appropriate to reduce radiation dose to as low as reasonably achievable. Dictated by Deni Doyle MD @ Jun 19 2017 10:54PM (Electronic Signature) Top of Form 1 Bottom of Form 1 Report Signed by Proxy. MTDD
[2017-06-22] MEDS: Ciprofloxacin in D5W 400 MG in Premix Bag 1 BAG IV SCH ×2 (00:25)
[2017-06-22] MEDS: HYDROmorphone 1 MG/ML Syringe IVPUSH PRN (01:02)
[2017-06-22] MEDS: Ondansetron 4 MG/2 ML SDV IVPUSH PRN (01:09)
[2017-06-22] MEDS: metroNIDAZOLE/Normal Saline 500 MG in Premix Bag 1 BAG IV SCH ×2 (01:29→10:11)
[2017-06-22] MEDS: Sodium Chloride 0.9% 1,000 ML IV SCH (04:43)
[2017-06-22 05:43] LABS: CHLORIDE,CL 110 mmol/L (98-110); SODIUM,NA 140 mmol/L (136-146)
[2017-06-22 07:12] VITALS: BP 114/72
[2017-06-22] MEDS: buPROPion 100 MG Tab PO SCH (09:01)
[2017-06-22] MEDS: methylPREDNISolone Sodium Succinate 40 MG/1 ML SDV IVPUSH SCH (09:03)
--- NOTE | 2017-06-22 10:17 | PCM.DCSUM1 ---
Discharge Summary - Hospital Course Brief History: 21 yo female with pmh of Crohn's disease who presents with four day history of abdominal pain and diarrhea. Yesterday she started vomiting. She is on no medications for her Crohn's disease and had not had a flair for over a year and a half. She reports some fevers and chills. She denies any shortness of breath or cough. CT scan of abdomen reported terminal ileitis. - Discharge Data Discharge Date: 06/22/17 Discharge Disposition: Home, Self-Care 01 Condition: Good - Discharge Diagnosis/Problem(s) (1) Abdominal pain SNOMED Code(s): 30715430 ICD Code: R10.9 - UNSPECIFIED ABDOMINAL PAIN Status: Acute Qualifiers: Abdominal location: right lower quadrant Qualified Code(s): R10.31 - Right lower quadrant pain (2) Exacerbation of Crohn's disease SNOMED Code(s): 16844079 ICD Code: K50.90 - CROHN'S DISEASE, UNSPECIFIED, WITHOUT COMPLICATIONS Status: Acute (3) Terminal ileitis SNOMED Code(s): 832220259 ICD Code: K50.00 - CROHN'S DISEASE OF SMALL INTESTINE WITHOUT COMPLICATIONS Status: Acute - Patient Instructions Diet: GI Soft/Low Residue/Low Fiber Activity: No Strenuous Activities, Rest and Relax Today Showering/Bathing: May Shower Notify Provider of: Fever, Increased Pain, Swelling and Redness, Drainage, Nausea and/or Vomiting - Discharge Plan Prescriptions/Med Rec: Ciprofloxacin HCl [Cipro] 500 mg PO BID #24 tablet metroNIDAZOLE [Flagyl] 500 mg PO Q8H #36 tab predniSONE [Prednisone] 10 mg PO DAILY #33 tablet Home Medications: Home Meds buPROPion [Wellbutrin] 25 mg PO DAILY 05/25/17 [History] Ciprofloxacin HCl [Cipro] 500 mg PO BID #24 tablet 06/22/17 [Rx] metroNIDAZOLE [Flagyl] 500 mg PO Q8H #36 tab 06/22/17 [Rx] predniSONE [Prednisone] 10 mg PO DAILY #33 tablet 06/22/17 [Rx] Patient Handouts: Prednisone tablets, Ciprofloxacin tablets, Metronidazole tablets or capsules, Crohn Disease Referrals: [facility] [Outside] Elza Barraza NP [Ordering Only Provider] - 06/29/17 1:15 pm - Discharge Summary/Plan Comment DC Time >30 min.: No Discharge Summary/Plan Comment: Discharge Diagnoses; Terminal ileitis Crohns exacerbation Hx Crohns disease Martha was admitted and treated with Ciprofloxacin, Flagyl and daily steroids. She was kept NPO and then slowly advanced to regular. Leukocytosis is stable today, likely elevated slightly due to steroids. Afebrile, continues to have LLQ pain and somewhat nauseated intermittently. She is demanding discharge today. Asking for pain medication for discharge home, she was offered Tramadol and she declined this saying she did not need it then. She will be discharged home on Cipro and Flagyl for 12 more days as well Prednisone slow taper over the next month. She is to take it easy on diet. She was encouraged to return to ED or clinic if concerns should arise. She has PCP follow up in 1 week and she is going to arrange follow up with her GI in [place] for when she returns home which will be beginning of July. - General Info Date of Service: 06/22/17 Admission Dx/Problem (Free Text: Crohns exacerbation Subjective Update: Demanding to be discharged home upon entering room. Reports she has some LLQ abdominal pain still,but has been without pain medication here since 99. She reports pain 6/10, nausea is intermittent. She is tolerating liquids and some soft foods. No chest pain or SOB. Functional Status: Reports: Tolerating Diet, Ambulating, Urinating - Review of Systems General: Reports: No Symptoms HEENT: Reports: No Symptoms Pulmonary: Reports: No Symptoms. Denies: Shortness of Breath Cardiovascular: Reports: No Symptoms. Denies: Chest Pain Gastrointestinal: Reports: Abdominal Pain (LLQ), Flatus, Nausea. Denies: Vomiting Genitourinary: Reports: No Symptoms. Denies: Dysuria, Frequency, Burning 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: Reports: No Symptoms. Denies: Neck Pain Neurological: Reports: No Symptoms. Denies: Confusion Psychiatric: Reports: No Symptoms. Denies: Homicidal Ideation - Patient Data Vitals - Most Recent: Last Vital Signs Temp 98.0 F 06/22/17 07:11 Pulse 78 06/22/17 07:11 Resp 15 06/22/17 07:11 BP 114/72 06/22/17 07:11 Pulse Ox 99 06/22/17 07:11 Weight - Most Recent: 53.342 kg I&O - Last 24 hours: Intake & Output 06/21/17 06/22/17 06/22/17 22:59 06:59 14:59 Intake Total 2191 1400 100 Output Total 1500 0 Balance 691 1400 100 Lab Results - Last 24 hrs: Laboratory Results - last 24 hr 06/22/17 06/22/17 Range/Units 05:11 05:11 WBC 13.45 H (4.0-11.0) K/uL RBC 3.89 L (4.30-5.90) M/uL Hgb 11.5 L (12.0-16.0) g/dL Hct 34.8 L (36.0-46.0) % MCV 89.5 (80.0-98.0) fL MCH 29.6 (27.0-32.0) pg MCHC 33.0 (31.0-37.0) g/dL RDW Std Deviation 44.6 (28.0-62.0) fl RDW Coeff of Zaid 14 (11.0-15.0) % Plt Count 382 (150-400) K/uL MPV 11.00 (7.40-12.00) fL Neut % (Auto) 67.9 (48.0-80.0) % Lymph % (Auto) 23.8 (16.0-40.0) % [place] % (Auto) 8.1 (0.0-15.0) % Eos % (Auto) 0.1 (0.0-7.0) % Baso % (Auto) 0.1 (0.0-1.5) % Neut # (Auto) 9.1 H (1.4-5.7) K/uL Lymph # (Auto) 3.2 H (0.6-2.4) K/uL [place] # (Auto) 1.1 H (0.0-0.8) K/uL Eos # (Auto) 0.0 (0.0-0.7) K/uL Baso # (Auto) 0.0 (0.0-0.1) K/uL Nucleated RBC % 0.0 /100WBC Nucleated RBCs # 0 K/uL Sodium 140 (136-146) mmol/L Potassium 3.7 (3.5-5.1) mmol/L Chloride 110 (98-110) mmol/L Carbon Dioxide 25 (21-31) mmol/L BUN 5 L (6.0-23.0) mg/dL Creatinine 0.6 (0.6-1.5) mg/dL Est Cr Clr Drug Dosing 123.68 mL/min Estimated GFR (MDRD) > 60.0 ml/min Glucose 95 (60-110) mg/dL Calcium 8.5 L (8.8-10.8) mg/dL Total Bilirubin 0.3 (0.1-1.5) mg/dL AST 10 (5-40) IU/L ALT 6 L (8-54) IU/L Alkaline Phosphatase 77 (40-150) Total Protein 5.2 L (6.0-8.0) g/dL Albumin 3.3 L (3.5-5.0) g/dL Globulin 1.9 L (2.0-3.5) g/dL Albumin/Globulin Ratio 1.7 (1.3-2.8) Med Orders - Current: Current Medications Bupropion HCl (Wellbutrin) 75 mg PO DAILY [facility] Last Admin: 06/22/17 09:01 Dose: 75 mg Hydromorphone HCl (Dilaudid) 1 mg IVPUSH Q3H PRN PRN Reason: Pain Last Admin: 06/22/17 01:02 Dose: 1 mg Ciprofloxacin/Dextrose 400 mg/ (Premix) 200 mls @ 200 mls/hr IV Q12H [facility] Last Admin: 06/22/17 00:25 Dose: 200 mls/hr Metronidazole 500 mg/ Premix 100 mls @ 100 mls/hr IV Q8H [facility] Last Admin: 06/22/17 10:11 Dose: 100 mls/hr Sodium Chloride (Normal Saline) 1,000 mls @ 125 mls/hr IV ASDIRECTED [facility] Last Admin: 06/22/17 04:43 Dose: 125 mls/hr Methylprednisolone Sodium Succinate (Solu-Medrol) 40 mg IVPUSH DAILY [facility] Last Admin: 06/22/17 09:03 Dose: 40 mg Ondansetron HCl (Zofran) 4 mg IVPUSH Q3H PRN PRN Reason: Nausea/Vomiting Last Admin: 06/22/17 01:09 Dose: 4 mg Discontinued Medications Bupropion HCl (Wellbutrin) 25 mg PO DAILY [facility] Last Admin: 06/20/17 12:39 Dose: Not Given Hydromorphone HCl (Dilaudid) 2 mg IVPUSH ONETIME ONE Stop: 06/19/17 23:14 Last Admin: 06/19/17 23:20 Dose: 2 mg Sodium Chloride (Normal Saline) 1,000 mls @ 999 mls/hr IV STAT ONE Stop: 06/19/17 22:38 Last Admin: 06/19/17 21:46 Dose: 999 mls/hr Methylprednisolone Sodium Succinate (Solu-Medrol) 125 mg IVPUSH ONETIME ONE Stop: 06/19/17 23:46 Last Admin: 06/19/17 23:46 Dose: 125 mg Methylprednisolone Sodium Succinate (Solu-Medrol) Confirm Administered Dose 125 mg .ROUTE .STK-MED ONE Stop: 06/19/17 23:46 Last Admin: 06/20/17 01:17 Dose: Not Given Ondansetron HCl (Zofran) 4 mg IVPUSH ONETIME ONE Stop: 06/19/17 23:16 Last Admin: 06/19/17 23:20 Dose: 4 mg - Exam General: Reports: Alert, Oriented, Cooperative, No Acute Distress Neck: Reports: Supple Lungs: Reports: Clear to Auscultation, Normal Respiratory Effort Cardiovascular: Reports: Regular Rate, Regular Rhythm GI/Abdominal Exam: Normal Bowel Sounds, Soft, No Organomegaly, No Distention, No Mass, Tender (LLQ to deep palpation) Back Exam: Reports: Normal Inspection, Full Range of Motion Neurological: Reports: No New Focal Deficit Psy/Mental Status: Reports: Alert, Normal Affect, Normal Mood *Q Meaningful Use (DIS) - VTE *Q VTE Criteria *Q: - Stroke *Q Stroke Criteria *Q: - AMI *Q AMI Criteria *Q:
== END 2017-06-22 11:15 | disposition home or self-care (01) ==
LOC: MW.ED 21:24 → MW.MS 06-20 00:01
PROVIDERS: ADMIT Internal Medicine; ATTEND Internal Medicine
DX: K50.00 Crohn's disease of small intestine without complications (principal); R19.7 Diarrhea, unspecified; J45.909 Unspecified asthma, uncomplicated; G89.29 Other chronic pain; M54.9 Dorsalgia, unspecified; F41.9 Anxiety disorder, unspecified; F32.9 Major depressive disorder, single episode, unspecified; F42.9 Obsessive-compulsive disorder, unspecified; Z87.891 Personal history of nicotine dependence; Z79.52 Long term (current) use of systemic steroids; Z79.2 Long term (current) use of antibiotics; Z79.899 Other long term (current) drug therapy; Z88.2 Allergy status to sulfonamides; Z88.8 Allergy status to other drugs, medicaments and biological substances; Z88.5 Allergy status to narcotic agent; Z91.018 Allergy to other foods; Z91.048 Other nonmedicinal substance allergy status; Z98.890 Other specified postprocedural states
CPT/HCPCS: 36415; 74176; 80053; 81001; 81025; 83690; 85025; 86140; 96361; 96365; 96366; 96367; 96375; 96376; 99285; A9270; G0378; J0744; J1170; J2405; J2920; J2930; J7040; 96374; 99283

== ENCOUNTER 2017-09-23 18:17 | Emergency (ER) | payer MEDICAID ==
[2017-09-23 18:27] VITALS: BP 134/91
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
[2017-09-23] MEDS: Sodium Chloride 0.9% 1,000 ML IV ONE (18:42)
[2017-09-23 19:17] LABS: CHLORIDE,CL 106 mmol/L (98-107); SODIUM,NA 140 mmol/L (136-145)
--- NOTE | 2017-09-24 15:03 | CR ---
EXAM DATE: 09/23/17 PATIENT'S AGE: 22 Patient: SHELLEY HALE Facility: [place], [place] Site . Site : 1995 Study: XRay Chest [id number]/24/2018 7:02:18 PM Ordering Physician: Doctor Peres Final Report: HISTORY: Shortness of breath and chest pain. FINDINGS: AP portable chest radiograph is compared with 16 March 2017. The cardiac silhouette is normal. Pulmonary vasculature is free of cephalization. No lobar consolidation, pleural effusion or pneumothorax is seen. Bony structures are normal for age. IMPRESSION: No acute cardiopulmonary disease. Dictated by Ivy Daniels MD @ 09/23/2017 7:18:27 PM Dictated by: Ivy Daniels MD @ 09/23/2017 19:18:37 (Electronic Signature) Report Signed by Proxy. TIERNEY
== END 2017-09-23 19:44 | disposition home or self-care (01) ==
LOC: MW.ED 18:17
DX: J98.01 Acute bronchospasm (principal); Z88.6 Allergy status to analgesic agent; Z91.018 Allergy to other foods; Z88.2 Allergy status to sulfonamides; Z91.09 Other allergy status, other than to drugs and biological substances; Z88.8 Allergy status to other drugs, medicaments and biological substances
CPT/HCPCS: 36415; 71045; 80053; 85025; 93005; 96360; 99285; J7040

== ENCOUNTER 2017-11-03 14:26 | Emergency (ER) | payer MEDICAID ==
--- NOTE | 2017-11-03 14:35 | EDM.PDOC ---
ED HPI GENERAL MEDICAL PROBLEM - General Stated Complaint: FREQUENT URINATION Time Seen by Provider: 11/03/17 14:35 Source of Information: Reports: Patient - History of Present Illness INITIAL COMMENTS - FREE TEXT/NARRATIVE: HISTORY AND PHYSICAL: History of present illness: Patient presents with urinary frequency over the last few days he has frequent daily sexual intercourse no fever nausea vomiting chills sweats she has a history of Crohn's disease no abdominal pain today no distress whatsoever no chest pain shortness breath headache dizziness or palpitation no bowel symptoms] Review of systems: As per history of present illness and below otherwise all systems reviewed and negative. Past medical history: As per history of present illness and as reviewed below otherwise noncontributory. Surgical history: As per history of present illness and as reviewed below otherwise noncontributory. Social history: No reported history of drug or alcohol abuse. Family history: As per history of present illness and as reviewed below otherwise noncontributory. Physical exam: HEENT: Atraumatic, normocephalic, pupils reactive, negative for conjunctival pallor or scleral icterus, mucous membranes moist, throat clear, neck supple, nontender, trachea midline. Lungs: Clear to auscultation, breath sounds equal bilaterally, chest nontender. Heart: S1S2, regular, negative for clicks, rubs, or JVD. Abdomen: Soft, nondistended, nontender. Negative for masses or hepatosplenomegaly. Negative for costovertebral tenderness. Pelvis: Stable nontender. Genitourinary: Deferred. Rectal: Deferred. Extremities: Atraumatic, negative for cords or calf pain. Neurovascular unremarkable. Neuro: Awake, alert, oriented. Cranial nerves II through XII unremarkable. Cerebellum unremarkable. Motor and sensory unremarkable throughout. Exam nonfocal. Diagnostics: [UA, hCG, urine culture] Therapeutics: [Macrobid 100 mg by mouth twice a day #14 no refill ] Impression: [Urine frequency] Definitive disposition and diagnosis as appropriate pending reevaluation and review of above. lower back Pain Score (Numeric/FACES): 2 - Related Data Allergies Allergy/AdvReac Type Severity Reaction Status Date / Time budesonide Allergy Numbness Verified 09/23/17 18:28 garlic Allergy Shortness Verified 09/23/17 18:28 of Breath Sulfa (Sulfonamide Allergy Rash Verified 09/23/17 18:28 Antibiotics) pine trees Allergy Hives Uncoded 09/23/17 18:28 Home Meds: Home Meds buPROPion [Wellbutrin] 300 mg PO DAILY 05/25/17 [History] Anxiety Medication 11/03/17 [History] Past Medical History - Past Health History Medical/Surgical History: Denies Medical/Surgical History HEENT History: Reports: None Cardiovascular History: Reports: None Respiratory History: Reports: Asthma Gastrointestinal History: Reports: Other (See Below) Other Gastrointestinal History: chron's Genitourinary History: Reports: None 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: 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 History: Reports: Back Pain, Chronic Neurological History: Reports: None Psychiatric History: Reports: Anxiety, Depression, OCD Endocrine/Metabolic History: Reports: None Hematologic History: Reports: None Oncologic (Cancer) History: Reports: None Dermatologic History: Reports: None - Infectious Disease History Infectious Disease History: Reports: None - Past Surgical History GI Surgical History: Reports: Colonoscopy, EGD Social & Family History - Family History Family Medical History: Noncontributory Other Dermatologic Family History: ovarian CA - Caffeine Use Caffeine Use: Reports: Soda ED ROS GENERAL - Review of Systems Review Of Systems: See Below ED EXAM, GENERAL - Physical Exam Exam: See Below Course - Vital Signs Last Recorded V/S: Last Vital Signs Temp 97.9 F 11/03/17 14:48 Pulse 86 11/03/17 14:48 Resp 20 11/03/17 14:48 BP 114/79 11/03/17 14:48 Pulse Ox 99 11/03/17 14:48 - Orders/Labs/Meds Orders: Active Orders 24 hr Category Date Time Status CULTURE URINE [RM] Stat Lab 11/03/17 14:35 Ordered HCG QUALITATIVE,URINE [URCHEM] Stat Lab 11/03/17 14:35 Ordered UA W/MICROSCOPIC [URIN] Stat Lab 11/03/17 14:35 Ordered Labs: Laboratory Tests 11/03/17 11/03/17 Range/Units 14:35 14:35 Urine Color YELLOW Urine Appearance CLEAR Urine pH 7.0 (5.0-8.0) Ur Specific [place] 1.010 (1.001-1.035) Urine Protein NEGATIVE (NEGATIVE) mg/dL Urine Glucose (UA) NEGATIVE (NEGATIVE) mg/dL Urine Ketones NEGATIVE (NEGATIVE) mg/dL Urine Occult Blood NEGATIVE (NEGATIVE) Urine Nitrite NEGATIVE (NEGATIVE) Urine Bilirubin NEGATIVE (NEGATIVE) Urine Urobilinogen 0.2 (<2.0) EU/dL Ur Leukocyte Esterase NEGATIVE (NEGATIVE) Urine HCG, Qual NEGATIVE (NEGATIVE) Departure - Departure Time of Disposition: 15:46 Disposition: Home, Self-Care 01 Condition: Good Clinical Impression: Urinary frequency - Discharge Information Referrals: Elza Barraza NP [Primary Care Provider] - Additional Instructions: The following information is given to patients seen in the emergency department who are being discharged to home. This information is to outline your options for follow-up care. We provide all patients seen in our emergency department with a follow-up referral. The need for follow-up, as well as the timing and circumstances, are variable depending upon the specifics of your emergency department visit. If you don't have a primary care physician on staff, we will provide you with a referral. We always advise you to contact your personal physician following an emergency department visit to inform them of the circumstance of the visit and for follow-up with them and/or the need for any referrals to a consulting specialist. The emergency department will also refer you to a specialist when appropriate. This referral assures that you have the opportunity for follow-up care with a specialist. All of these measure are taken in an effort to provide you with optimal care, which includes your follow-up. Under all circumstances we always encourage you to contact your private physician who remains a resource for coordinating your care. When calling for follow-up care, please make the office aware that this follow-up is from your recent emergency room visit. If for any reason you are refused follow-up, please contact the [facility] emergency department at and asked to speak to the emergency department charge nurse. - My Orders Last 24 Hours: My Active Orders 11/03/17 14:35 CULTURE URINE [RM] Stat HCG QUALITATIVE,URINE [URCHEM] Stat UA W/MICROSCOPIC [URIN] Stat - Assessment/Plan Last 24 Hours: My Active Orders 11/03/17 14:35 CULTURE URINE [RM] Stat HCG QUALITATIVE,URINE [URCHEM] Stat UA W/MICROSCOPIC [URIN] Stat
[2017-11-03 16:09] VITALS: BP 152/81
== END 2017-11-03 16:10 | disposition home or self-care (01) ==
LOC: MW.ED 14:26
DX: R35.0 Frequency of micturition (principal); F41.9 Anxiety disorder, unspecified; F32.9 Major depressive disorder, single episode, unspecified; Z79.899 Other long term (current) drug therapy; Z91.018 Allergy to other foods; Z91.09 Other allergy status, other than to drugs and biological substances; Z88.2 Allergy status to sulfonamides; Z88.8 Allergy status to other drugs, medicaments and biological substances
CPT/HCPCS: 81001; 81025; 87086; 99283

== ENCOUNTER 2018-02-06 20:50 | Emergency (ER) | payer MEDICAID ==
--- NOTE | 2018-02-06 20:57 | EDM.PDOC ---
ED HPI GENERAL MEDICAL PROBLEM - General Chief Complaint: Abdominal Pain Stated Complaint: CROHN'S FLARE UP Time Seen by Provider: 02/06/18 20:55 - History of Present Illness INITIAL COMMENTS - FREE TEXT/NARRATIVE: HISTORY AND PHYSICAL: History of present illness: The patient is a 22-year-old female with a history of Crohn's who was last admitted here in June for a flareup of Crohn's and at that time was following with the GI physician in [place] and was on no preventative medication, who presents today with complaints of another Crohn's flareup. The patient states that after her admission in June she did follow-up with her doctor in [place] but now she is connecting with a provider at [facility] in [place] for more local care. She says she only gets flareups twice a year and is not on any preventative because of that and the GI doctor did not recommend any because of her minimal symptoms. She says she started feeling some discomfort for the last couple of days and it seemed to worsen today and is more on the left side. Typically she gets right-sided pain. 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 She has not had fevers chills vomiting or diarrhea but she has had nausea. She says that her last bowel movement was yesterday and it was within normal limits. She says that she watches her diet and tries to eat more healthy foods to help prevent flareups but they are usually triggered by stress. Patient denies any urinary complaints has no back or flank pain has no chest pain or shortness of breath. She says that she never gets diarrhea with her flareups and her last bowel movement was not black or bloody. Her prior admission of mid June was reviewed by me. She had a CT scan of the abdomen and pelvis were revealed terminal ileitis and she was treated with antibiotics and steroids. She was in the hospital for several days for pain nausea vomiting and then requested discharge. She was supposed to follow up with her provider in [place] Review of systems: As per history of present illness and below otherwise all systems reviewed and negative. Past medical history: As per history of present illness and as reviewed below otherwise noncontributory. Surgical history: As per history of present illness and as reviewed below otherwise noncontributory. Social history: No reported history of drug or alcohol abuse. Family history: As per history of present illness and as reviewed below otherwise noncontributory. Physical exam: General: Well-developed well-nourished thin female who is nontoxic and vital signs are noted by me HEENT: Atraumatic, normocephalic, , negative for conjunctival pallor or scleral icterus, mucous membranes moist, throat clear, neck supple, nontender, trachea midline. Lungs: Clear to auscultation, breath sounds equal bilaterally, chest nontender. Heart: S1S2, regular rate and rhythm no overt murmur Abdomen: Soft, nondistended, bowel sounds are hypoactive. There is tenderness to the right and left of the umbilicus with out rebound or guarding and there is more tenderness on the left side. It is very mild in character. Negative for masses or hepatosplenomegaly. Pelvis: Deferred Genitourinary: Deferred. Rectal: Deferred. Extremities: Atraumatic, negative for cords or calf pain. Neurovascular unremarkable. Neuro: Awake, alert, oriented. Cranial nerves II through XII unremarkable. Cerebellum unremarkable. Motor and sensory unremarkable throughout. Exam nonfocal. Diagnostics: CBC CMP amylase lipase CRP UA UCG Therapeutics: IV fluids Zofran Toradol Dilaudid Solu-Medrol Please note that the patient refused the Toradol due to her Crohn's and she was told not to take NSAIDs I discussed with the patient we would see her clinical course here and evaluate her lab tests more specifically the CRP to decide if imaging as indicated. He is agreeable to see how her course goes and then determine that Patient says that her pain is completely gone and I discussed with her testing results and we will hold off imaging at this time. I've advised her to contact her provider Camryn Barraza at [facility] tomorrow and I will give her 1 dose of solu-Medrol 40 mg and have told her that I cannot write a prescription for home as I cannot follow this with her. She is comfortable with this. I will also give her some Bentyl/dicyclomine from [facility] that she can try. She is aware of need for follow-up. Impression: Abdominal pain/Crohn's flareup Definitive disposition and diagnosis as appropriate pending reevaluation and review of above. Abdominal Pain Score (Numeric/FACES): 4 - Related Data Allergies Allergy/AdvReac Type Severity Reaction Status Date / Time budesonide Allergy Numbness Verified 02/06/18 21:01 garlic Allergy Shortness Verified 02/06/18 21:01 of Breath Sulfa (Sulfonamide Allergy Rash Verified 02/06/18 21:01 Antibiotics) pine trees Allergy Hives Uncoded 02/06/18 21:01 Home Meds: Home Meds buPROPion [Wellbutrin] 300 mg PO DAILY 05/25/17 [History] Past Medical History - Past Health History Medical/Surgical History: Denies Medical/Surgical History HEENT History: Reports: None Cardiovascular History: Reports: None Respiratory History: Reports: Asthma Gastrointestinal History: Reports: Other (See Below) Other Gastrointestinal History: chron's Genitourinary History: Reports: None 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: 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 History: Reports: Back Pain, Chronic Neurological History: Reports: None Psychiatric History: Reports: Anxiety, Depression, OCD Endocrine/Metabolic History: Reports: None Hematologic History: Reports: None Oncologic (Cancer) History: Reports: None Dermatologic History: Reports: None - Infectious Disease History Infectious Disease History: Reports: None - Past Surgical History GI Surgical History: Reports: Colonoscopy, EGD Social & Family History - Family History Family Medical History: Noncontributory Other Dermatologic Family History: ovarian CA - Caffeine Use Caffeine Use: Reports: Soda ED ROS GENERAL - Review of Systems Review Of Systems: ROS reveals no pertinent complaints other than HPI. ED EXAM, GENERAL - Physical Exam Exam: See Below (See dictation) Course - Vital Signs Last Recorded V/S: Last Vital Signs Temp 36.7 C 02/06/18 21:00 Pulse 96 02/06/18 21:00 Resp 16 02/06/18 21:00 BP 122/84 02/06/18 21:00 Pulse Ox 98 02/06/18 21:00 - Orders/Labs/Meds Orders: Active Orders 24 hr Category Date Time Status Sodium Chloride 0.9% [Normal Saline] 1,000 ml Med 02/06/18 21:11 Active IV STAT Sodium Chloride 0.9% [Saline Flush] Med 02/06/18 21:11 Active 10 ml FLUSH ASDIRECTED PRN Sodium Chloride 0.9% [Saline Flush] Med 02/06/18 21:11 Active 2.5 ml FLUSH ASDIRECTED PRN Saline Lock Insert [OM.PC] Stat Oth 02/06/18 21:10 Ordered Medication Orders Sodium Chloride (Normal Saline) 1,000 mls @ 999 mls/hr IV STAT ONE Stop: 02/06/18 22:11 Last Admin: 02/06/18 21:24 Dose: 999 mls/hr Sodium Chloride (Saline Flush) 10 ml FLUSH ASDIRECTED PRN PRN Reason: Keep Vein Open Last Admin: 02/06/18 21:24 Dose: 10 ml Sodium Chloride (Saline Flush) 2.5 ml FLUSH ASDIRECTED PRN PRN Reason: Keep Vein Open Last Admin: 02/06/18 21:24 Dose: 2.5 ml Labs: Laboratory Tests 02/06/18 02/06/18 02/06/18 Range/Units 21:00 21:00 21:16 WBC 11.20 H (4.0-11.0) K/uL RBC 4.26 L (4.30-5.90) M/uL Hgb 13.4 (12.0-16.0) g/dL Hct 38.9 (36.0-46.0) % MCV 91.3 (80.0-98.0) fL MCH 31.5 (27.0-32.0) pg MCHC 34.4 (31.0-37.0) g/dL RDW Std Deviation 42.1 (28.0-62.0) fl RDW Coeff of Zaid 13 (11.0-15.0) % Plt Count 344 (150-400) K/uL MPV 11.40 (7.40-12.00) fL Neut % (Auto) 75.0 (48.0-80.0) % Lymph % (Auto) 18.9 (16.0-40.0) % Dougherty % (Auto) 5.9 (0.0-15.0) % Eos % (Auto) 0.0 (0.0-7.0) % Baso % (Auto) 0.2 (0.0-1.5) % Neut # (Auto) 8.4 H (1.4-5.7) K/uL Lymph # (Auto) 2.1 (0.6-2.4) K/uL Dougherty # (Auto) 0.7 (0.0-0.8) K/uL Eos # (Auto) 0.0 (0.0-0.7) K/uL Baso # (Auto) 0.0 (0.0-0.1) K/uL Nucleated RBC % 0.0 /100WBC Nucleated RBCs # 0 K/uL Sodium (136-145) mmol/L Potassium (3.5-5.1) mmol/L Chloride (98-107) mmol/L Carbon Dioxide (21.0-32.0) mmol/L BUN (7.0-18.0) mg/dL Creatinine (0.6-1.0) mg/dL Est Cr Clr Drug Dosing mL/min Estimated GFR (MDRD) ml/min Glucose (74-106) mg/dL Calcium (8.5-10.1) mg/dL Total Bilirubin (0.2-1.0) mg/dL AST (15-37) IU/L ALT (14-63) IU/L Alkaline Phosphatase (46-116) U/L C-Reactive Protein (0.00-0.90) mg/dL Total Protein (6.4-8.2) g/dL Albumin (3.4-5.0) g/dL Globulin (2.0-3.5) g/dL Albumin/Globulin Ratio (1.3-2.8) Amylase (25-115) U/L Lipase (73-393) U/L Urine Color YELLOW Urine Appearance SLT CLOUDY Urine pH 7.5 (5.0-8.0) Ur Specific [place] 1.015 (1.001-1.035) Urine Protein NEGATIVE (NEGATIVE) mg/dL Urine Glucose (UA) NEGATIVE (NEGATIVE) mg/dL Urine Ketones NEGATIVE (NEGATIVE) mg/dL Urine Occult Blood LARGE H (NEGATIVE) Urine Nitrite NEGATIVE (NEGATIVE) Urine Bilirubin NEGATIVE (NEGATIVE) Urine Urobilinogen 0.2 (<2.0) EU/dL Ur Leukocyte Esterase TRACE (NEGATIVE) Urine RBC 0-3 (0-2/HPF) Urine WBC 0-3 (0-5/HPF) Ur Epithelial Cells FEW (NONE-FEW) Urine Bacteria FEW (NEGATIVE) Urine HCG, Qual NEGATIVE (NEGATIVE) 02/06/18 Range/Units 21:16 WBC (4.0-11.0) K/uL RBC (4.30-5.90) M/uL Hgb (12.0-16.0) g/dL Hct (36.0-46.0) % MCV (80.0-98.0) fL MCH (27.0-32.0) pg MCHC (31.0-37.0) g/dL RDW Std Deviation (28.0-62.0) fl RDW Coeff of Zaid (11.0-15.0) % Plt Count (150-400) K/uL MPV (7.40-12.00) fL Neut % (Auto) (48.0-80.0) % Lymph % (Auto) (16.0-40.0) % Dougherty % (Auto) (0.0-15.0) % Eos % (Auto) (0.0-7.0) % Baso % (Auto) (0.0-1.5) % Neut # (Auto) (1.4-5.7) K/uL Lymph # (Auto) (0.6-2.4) K/uL Dougherty # (Auto) (0.0-0.8) K/uL Eos # (Auto) (0.0-0.7) K/uL Baso # (Auto) (0.0-0.1) K/uL Nucleated RBC % /100WBC Nucleated RBCs # K/uL Sodium 143 (136-145) mmol/L Potassium 3.7 (3.5-5.1) mmol/L Chloride 105 (98-107) mmol/L Carbon Dioxide 26.9 (21.0-32.0) mmol/L BUN 6 L (7.0-18.0) mg/dL Creatinine 0.8 (0.6-1.0) mg/dL Est Cr Clr Drug Dosing 95.59 mL/min Estimated GFR (MDRD) > 60.0 ml/min Glucose 113 H (74-106) mg/dL Calcium 9.1 (8.5-10.1) mg/dL Total Bilirubin 0.4 (0.2-1.0) mg/dL AST 11 L (15-37) IU/L ALT 18 (14-63) IU/L Alkaline Phosphatase 98 (46-116) U/L C-Reactive Protein 0.10 (0.00-0.90) mg/dL Total Protein 7.9 (6.4-8.2) g/dL Albumin 4.3 (3.4-5.0) g/dL Globulin 3.6 H (2.0-3.5) g/dL Albumin/Globulin Ratio 1.2 L (1.3-2.8) Amylase 42 (25-115) U/L Lipase 136 (73-393) U/L Urine Color Urine Appearance Urine pH (5.0-8.0) Ur Specific Sterling (1.001-1.035) Urine Protein (NEGATIVE) mg/dL Urine Glucose (UA) (NEGATIVE) mg/dL Urine Ketones (NEGATIVE) mg/dL Urine Occult Blood (NEGATIVE) Urine Nitrite (NEGATIVE) Urine Bilirubin (NEGATIVE) Urine Urobilinogen (<2.0) EU/dL Ur Leukocyte Esterase (NEGATIVE) Urine RBC (0-2/HPF) Urine WBC (0-5/HPF) Ur Epithelial Cells (NONE-FEW) Urine Bacteria (NEGATIVE) Urine HCG, Qual (NEGATIVE) Meds: Medications Generic Name Dose Route Start Last Admin Trade Name Hattie PRN Reason Stop Dose Admin Sodium Chloride 1,000 mls @ 999 mls/hr 02/06/18 21:11 02/06/18 21:24 Normal Saline IV 02/06/18 22:11 999 mls/hr STAT ONE Administration Sodium Chloride 10 ml 02/06/18 21:11 02/06/18 21:24 Saline Flush FLUSH 10 ml ASDIRECTED PRN Administration Keep Vein Open Sodium Chloride 2.5 ml 02/06/18 21:11 02/06/18 21:24 Saline Flush FLUSH 2.5 ml ASDIRECTED PRN Administration Keep Vein Open Discontinued Medications Generic Name Dose Route Start Last Admin Trade Name Hattie PRN Reason Stop Dose Admin Hydromorphone HCl 1 mg 02/06/18 21:11 02/06/18 21:24 Dilaudid IVPUSH 02/06/18 21:12 1 mg ONETIME ONE Administration Ketorolac Tromethamine 30 mg 02/06/18 21:11 02/06/18 21:32 Toradol IVPUSH 02/06/18 21:12 Not Given ONETIME ONE Ondansetron HCl 4 mg 02/06/18 21:11 02/06/18 21:24 Zofran IVPUSH 02/06/18 21:12 4 mg ONETIME ONE Administration Departure - Departure Time of Disposition: 22:08 Disposition: Home, Self-Care 01 Condition: Good Clinical Impression: Exacerbation of Crohn's disease Qualifiers: Digestive disease complication type: without complication Qualified Code(s): K50.90 - Crohn's disease, unspecified, without complications - Discharge Information Referrals: Elza Barraza NP [Primary Care Provider] - Forms: ED Department Discharge Additional Instructions: The following information is given to patients seen in the emergency department who are being discharged to home. This information is to outline your options for follow-up care. We provide all patients seen in our emergency department with a follow-up referral. The need for follow-up, as well as the timing and circumstances, are variable depending upon the specifics of your emergency department visit. If you don't have a primary care physician on staff, we will provide you with a referral. We always advise you to contact your personal physician following an emergency department visit to inform them of the circumstance of the visit and for follow-up with them and/or the need for any referrals to a consulting specialist. The emergency department will also refer you to a specialist when appropriate. This referral assures that you have the opportunity for followup care with a specialist. All of these measure are taken in an effort to provide you with optimal care, which includes your followup. Under all circumstances we always encourage you to contact your private physician who remains a resource for coordinating your care. When calling for followup care, please make the office aware that this follow-up is from your recent emergency room visit. If for any reason you are refused follow-up, please contact the [facility] emergency department at and ask to speak to the emergency department charge nurse. [address] [place] [address] Push hydration and rest. Use Zofran that you have at home as needed for nausea and vomiting and try the dicyclomine/Bentyl you have been given this evening. Please contact her provider Camryn Barraza at [facility] in the morning to schedule follow-up and further care. Return to ER as needed and as discussed - My Orders Last 24 Hours: My Active Orders 02/06/18 21:10 Saline Lock Insert [OM.PC] Stat 02/06/18 21:11 Sodium Chloride 0.9% [Normal Saline] 1,000 ml IV STAT Sodium Chloride 0.9% [Saline Flush] 10 ml FLUSH ASDIRECTED PRN Sodium Chloride 0.9% [Saline Flush] 2.5 ml FLUSH ASDIRECTED PRN - Assessment/Plan Last 24 Hours: My Active Orders 02/06/18 21:10 Saline Lock Insert [OM.PC] Stat 02/06/18 21:11 Sodium Chloride 0.9% [Normal Saline] 1,000 ml IV STAT Sodium Chloride 0.9% [Saline Flush] 10 ml FLUSH ASDIRECTED PRN Sodium Chloride 0.9% [Saline Flush] 2.5 ml FLUSH ASDIRECTED PRN
[2018-02-06] MEDS ORDERED: Sodium Chloride 0.9% 2.5 ML Syringe FLUSH PRN (21:11)
[2018-02-06] MEDS ORDERED: Ondansetron 4 MG/2 ML SDV IVPUSH ONE (21:11)
[2018-02-06] MEDS ORDERED: Ketorolac 30 MG/ML SDV IVPUSH ONE (21:11)
[2018-02-06] MEDS ORDERED: HYDROmorphone 1 MG/ML Syringe IVPUSH ONE (21:11)
[2018-02-06] MEDS ORDERED: Sodium Chloride 0.9% 1,000 ML IV ONE (21:11)
[2018-02-06] MEDS ORDERED: Sodium Chloride 0.9% 10 ML Syringe FLUSH PRN (21:11)
[2018-02-06 21:48] LABS: CHLORIDE,CL 105 mmol/L (98-107); SODIUM,NA 143 mmol/L (136-145)
[2018-02-06] MEDS ORDERED: methylPREDNISolone Sodium Succinate 40 MG/1 ML SDV IV ONE (22:08)
[2018-02-06 22:27] VITALS: BP 135/100
== END 2018-02-06 22:25 | disposition home or self-care (01) ==
LOC: MW.ED 20:50
DX: K50.90 Crohn's disease, unspecified, without complications (principal); F41.9 Anxiety disorder, unspecified; F32.9 Major depressive disorder, single episode, unspecified; Z79.899 Other long term (current) drug therapy; Z91.018 Allergy to other foods; Z88.2 Allergy status to sulfonamides; Z88.8 Allergy status to other drugs, medicaments and biological substances
CPT/HCPCS: 36415; 80053; 81001; 81025; 82150; 83690; 85025; 86140; 96361; 96374; 96375; 99284; J1170; J2405; J2920; J7040; 99283

== ENCOUNTER 2018-07-24 10:37 | Emergency (ER) | payer BC ==
[2018-07-24] MEDS ORDERED: Sodium Chloride 0.9% 2.5 ML Syringe FLUSH PRN (10:51)
[2018-07-24] MEDS ORDERED: Ondansetron 4 MG/2 ML SDV IVPUSH ONE (10:51)
[2018-07-24] MEDS ORDERED: Sodium Chloride 0.9% 1,000 ML IV ONE (10:51)
[2018-07-24] MEDS ORDERED: Sodium Chloride 0.9% 10 ML Syringe FLUSH PRN (10:51)
--- NOTE | 2018-07-24 10:56 | EDM.PDOC ---
ED HPI GENERAL MEDICAL PROBLEM - General Chief Complaint: Gastrointestinal Problem Stated Complaint: PREG. BELLY PAIN Time Seen by Provider: 07/24/18 10:47 Source of Information: Reports: Patient History Limitations: Reports: No Limitations - History of Present Illness INITIAL COMMENTS - FREE TEXT/NARRATIVE: HISTORY AND PHYSICAL: History of present illness: Patient is a 22-year-old female here with complaint of nausea and vomiting. She is 17 weeks gestation, . She states she woke up this morning dry heaving then started vomiting bile. She has had nausea and vomiting throughout her whole . She took some zofran but states she threw this up. She tried eating but was unable to keep anything down. She is complaining of a headache and states she is having left sided abdominal pain. She states it feels like a pulled muscle as she has had a pulled muscle with her previous and it feels similar. She denies fevers, chills, diarrhea, cough, congestion, vaginal bleeding or discharge. Review of systems: As per history of present illness and below otherwise all systems reviewed and negative. Past medical history: As per history of present illness and as reviewed below otherwise noncontributory. Surgical history: As per history of present illness and as reviewed below otherwise noncontributory. Social history: No reported history of drug or alcohol abuse. Family history: As per history of present illness and as reviewed below otherwise noncontributory. Physical exam: General: Patient sitting comfortably in no acute distress and nontoxic appearing HEENT: Atraumatic, normocephalic, pupils reactive, negative for conjunctival pallor or scleral icterus, mucous membranes moist, throat clear, neck supple, nontender, trachea midline. No meningeal signs. Lungs: Clear to auscultation, breath sounds equal bilaterally, chest nontender. Heart: S1S2, regular, negative for clicks, rubs, or overt murmur. Abdomen: Mild left upper and left lower quadrant tenderness to palpation. Soft, nondistended. Negative for masses or hepatosplenomegaly. Negative for costovertebral tenderness. No rigidity, rebound, guarding. Pelvis: Stable nontender. Genitourinary: Deferred. Rectal: Deferred. Extremities: Atraumatic, negative for cords or calf pain. Neurovascular unremarkable. Neuro: Awake, alert, oriented. Cranial nerves II through XII unremarkable. Cerebellum unremarkable. Motor and sensory unremarkable throughout. Exam nonfocal. Notes: Diagnostics: CBC, CMP, UA Therapeutics: 1L Normal Saline IV 4mg Zofran IV Prescriptions: None Impression: Vomiting in Plan: 1. Drink plenty of small sips of fluids throughout the day and bland food as tolerated, zofran as needed for nausea/vomiting. 2. Follow up with rate and cost analyst 3. Return to ED as needed as discussed Definitive disposition and diagnosis as appropriate pending reevaluation and review of above. abdomen Pain Score (Numeric/FACES): 5 - Related Data Allergies Allergy/AdvReac Type Severity Reaction Status Date / Time budesonide Allergy Numbness Verified 04/26/18 22:50 garlic Allergy Shortness Verified 04/26/18 22:50 of Breath NSAIDS (Non-Steroidal Allergy Nausea Verified 07/24/18 10:52 Anti-Inflamma prednisone Allergy Rash Verified 07/24/18 10:46 Sulfa (Sulfonamide Allergy Rash Verified 04/26/18 22:50 Antibiotics) pine trees Allergy Hives Uncoded 04/26/18 22:50 Home Meds: Home Meds buPROPion [Wellbutrin] 300 mg PO DAILY 05/25/17 [History] Ondansetron [Zofran ODT] 4 mg PO Q6H PRN 07/24/18 [History] Past Medical History - Past Health History Medical/Surgical History: Denies Medical/Surgical History HEENT History: Reports: None Cardiovascular History: Reports: None Respiratory History: Reports: Asthma Gastrointestinal History: Reports: Other (See Below) Other Gastrointestinal History: chron's Genitourinary History: Reports: None 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: 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 History: Reports: Back Pain, Chronic Neurological History: Reports: None Psychiatric History: Reports: Anxiety, Depression, OCD Endocrine/Metabolic History: Reports: None Hematologic History: Reports: None Oncologic (Cancer) History: Reports: None Dermatologic History: Reports: None - Infectious Disease History Infectious Disease History: Reports: None - Past Surgical History GI Surgical History: Reports: Colonoscopy, EGD Social & Family History - Family History Family Medical History: Noncontributory Other Dermatologic Family History: ovarian CA - Caffeine Use Caffeine Use: Reports: None ED ROS GENERAL - Review of Systems Review Of Systems: ROS reveals no pertinent complaints other than HPI. ED EXAM - Physical Exam Exam: See Below (see dictation) Course - Vital Signs Last Recorded V/S: Last Vital Signs Temp 98.6 F 07/24/18 10:47 Pulse 102 H 07/24/18 10:47 Resp 20 07/24/18 10:47 BP 126/72 07/24/18 10:47 Pulse Ox 100 07/24/18 10:47 - Orders/Labs/Meds Orders: Active Orders 24 hr Category Date Time Status Sodium Chloride 0.9% [Saline Flush] Med 07/24/18 10:51 Active 10 ml FLUSH ASDIRECTED PRN Sodium Chloride 0.9% [Saline Flush] Med 07/24/18 10:51 Active 2.5 ml FLUSH ASDIRECTED PRN Saline Lock Insert [OM.PC] Stat Oth 07/24/18 10:51 Ordered Medication Orders Sodium Chloride (Saline Flush) 10 ml FLUSH ASDIRECTED PRN PRN Reason: Keep Vein Open Sodium Chloride (Saline Flush) 2.5 ml FLUSH ASDIRECTED PRN PRN Reason: Keep Vein Open Labs: Laboratory Tests 07/24/18 07/24/18 07/24/18 Range/Units 11:00 11:00 11:45 WBC 13.04 H (4.0-11.0) K/uL RBC 4.17 L (4.30-5.90) M/uL Hgb 13.4 (12.0-16.0) g/dL Hct 38.4 (36.0-46.0) % MCV 92.1 (80.0-98.0) fL MCH 32.1 H (27.0-32.0) pg MCHC 34.9 (31.0-37.0) g/dL RDW Std Deviation 43.6 (28.0-62.0) fl RDW Coeff of Zaid 13 (11.0-15.0) % Plt Count 307 (150-400) K/uL MPV 11.20 (7.40-12.00) fL Neut % (Auto) 80.6 H (48.0-80.0) % Lymph % (Auto) 14.0 L (16.0-40.0) % [place] % (Auto) 4.8 (0.0-15.0) % Eos % (Auto) 0.4 (0.0-7.0) % Baso % (Auto) 0.2 (0.0-1.5) % Neut # (Auto) 10.5 H (1.4-5.7) K/uL Lymph # (Auto) 1.8 (0.6-2.4) K/uL [place] # (Auto) 0.6 (0.0-0.8) K/uL Eos # (Auto) 0.1 (0.0-0.7) K/uL Baso # (Auto) 0.0 (0.0-0.1) K/uL Nucleated RBC % 0.0 /100WBC Nucleated RBCs # 0 K/uL Sodium 139 (136-145) mmol/L Potassium 3.3 L (3.5-5.1) mmol/L Chloride 104 (98-107) mmol/L Carbon Dioxide 24.8 (21.0-32.0) mmol/L BUN 4 L (7.0-18.0) mg/dL Creatinine 0.6 (0.6-1.0) mg/dL Est Cr Clr Drug Dosing 120.01 mL/min Estimated GFR (MDRD) > 60.0 ml/min Glucose 106 (74-106) mg/dL Calcium 8.6 (8.5-10.1) mg/dL Total Bilirubin 0.4 (0.2-1.0) mg/dL AST 13 L (15-37) IU/L ALT 15 (14-63) IU/L Alkaline Phosphatase 80 (46-116) U/L Total Protein 7.1 (6.4-8.2) g/dL Albumin 3.1 L (3.4-5.0) g/dL Globulin 4.0 (2.6-4.0) g/dL Albumin/Globulin Ratio 0.8 L (0.9-1.6) Urine Color YELLOW Urine Appearance CLEAR Urine pH 7.0 (5.0-8.0) Ur Specific [place] 1.010 (1.001-1.035) Urine Protein NEGATIVE (NEGATIVE) mg/dL Urine Glucose (UA) NEGATIVE (NEGATIVE) mg/dL Urine Ketones NEGATIVE (NEGATIVE) mg/dL Urine Occult Blood NEGATIVE (NEGATIVE) Urine Nitrite NEGATIVE (NEGATIVE) Urine Bilirubin NEGATIVE (NEGATIVE) Urine Urobilinogen 0.2 (<2.0) EU/dL Ur Leukocyte Esterase NEGATIVE (NEGATIVE) Meds: Medications Generic Name Dose Route Start Last Admin Trade Name Freq PRN Reason Stop Dose Admin Sodium Chloride 10 ml 07/24/18 10:51 Saline Flush FLUSH ASDIRECTED PRN Keep Vein Open Sodium Chloride 2.5 ml 07/24/18 10:51 Saline Flush FLUSH ASDIRECTED PRN Keep Vein Open Discontinued Medications Generic Name Dose Route Start Last Admin Trade Name Glenq PRN Reason Stop Dose Admin Acetaminophen 1,000 mg 07/24/18 12:08 Tylenol Extra Strength PO 07/24/18 12:09 ONETIME ONE Sodium Chloride 1,000 mls @ 999 mls/hr 07/24/18 10:51 07/24/18 11:03 Normal Saline IV 07/24/18 11:51 999 mls/hr STAT ONE Administration Ondansetron HCl 4 mg 07/24/18 10:51 07/24/18 11:03 Zofran IVPUSH 07/24/18 10:52 4 mg ONETIME ONE Administration Departure - Departure Time of Disposition: 12:19 Disposition: Home, Self-Care 01 Condition: Good Clinical Impression: Vomiting affecting - Discharge Information Referrals: PCP,Unknown [Primary Care Provider] - Forms: ED Department Discharge Additional Instructions: The following information is given to patients seen in the emergency department who are being discharged to home. This information is to outline your options for follow-up care. We provide all patients seen in our emergency department with a follow-up referral. The need for follow-up, as well as the timing and circumstances, are variable depending upon the specifics of your emergency department visit. If you don't have a primary care physician on staff, we will provide you with a referral. We always advise you to contact your personal physician following an emergency department visit to inform them of the circumstance of the visit and for follow-up with them and/or the need for any referrals to a consulting specialist. The emergency department will also refer you to a specialist when appropriate. This referral assures that you have the opportunity for follow-up care with a specialist. All of these measure are taken in an effort to provide you with optimal care, which includes your follow-up. Under all circumstances we always encourage you to contact your private physician who remains a resource for coordinating your care. When calling for follow-up care, please make the office aware that this follow-up is from your recent emergency room visit. If for any reason you are refused follow-up, please contact the [facility] Emergency Department at and asked to speak to the emergency department charge nurse. [facility] [address] [place] [id number] 1. Give plenty of fluids and alternate tylenol and motrin as discussed. 2. Follow up with hazard waste handler 3. Return to ED as needed as discussed - My Orders Last 24 Hours: My Active Orders 07/24/18 10:51 Sodium Chloride 0.9% [Saline Flush] 10 ml FLUSH ASDIRECTED PRN Sodium Chloride 0.9% [Saline Flush] 2.5 ml FLUSH ASDIRECTED PRN Saline Lock Insert [OM.PC] Stat - Assessment/Plan Last 24 Hours: My Active Orders 07/24/18 10:51 Sodium Chloride 0.9% [Saline Flush] 10 ml FLUSH ASDIRECTED PRN Sodium Chloride 0.9% [Saline Flush] 2.5 ml FLUSH ASDIRECTED PRN Saline Lock Insert [OM.PC] Stat
[2018-07-24 11:31] LABS: CHLORIDE,CL 104 mmol/L (98-107); SODIUM,NA 139 mmol/L (136-145)
[2018-07-24] MEDS ORDERED: Acetaminophen 500 MG Tab PO ONE (12:08)
--- NOTE | 2018-07-24 12:16 | US ---
CLINICAL HISTORY: Lower abdominal pain bleeding TECHNIQUE: Real time bowling scale imaging of the fetus was performed as well as color Doppler and spectral Doppler analysis of the umbilical artery. FINDINGS: Sonographic imaging demonstrates a single living intrauterine gestation. Fetus demonstrates a regular cardiac rate of 136 beats per minute. Fetus has a transverse orientation . The placenta lies anterior without evidence of placenta previa. Amniotic fluid volume appears normal. The composite ultrasound gestational age is calculated at 17 weeks 2 days . The estimated weight is 190 grams which lies at the 82nd percentile. Cervical length measures 3.4 cm. biometry: BPD 3.7 cm 17 weeks 2 days HC: 13.5 cm 17 weeks 0 days HC: 11.7 cm 17 weeks 4 days FL: 2.4 cm/17 weeks 2 days IMPRESSION: 1. Single live intrauterine gestation with composite gestational age of 17 weeks 2 days with GWEN of 12/30/2018. No perigestational hemorrhage. Dictated by Antonia Lang MD @ Jul 24 2018 12:10PM Signed by Dr. Antonia Lang @ Jul 24 2018 12:13PM
[2018-07-24 13:18] VITALS: BP 109/62
== END 2018-07-24 13:16 | disposition home or self-care (01) ==
LOC: MW.ED 10:37
DX: O21.9 Vomiting of pregnancy, unspecified (principal); O99.342 Other mental disorders complicating pregnancy, second trimester; F41.9 Anxiety disorder, unspecified; F32.9 Major depressive disorder, single episode, unspecified; Z3A.17 17 weeks gestation of pregnancy; Z79.899 Other long term (current) drug therapy; Z91.018 Allergy to other foods; Z88.8 Allergy status to other drugs, medicaments and biological substances; Z88.2 Allergy status to sulfonamides
CPT/HCPCS: 36415; 76815; 80053; 81003; 85025; 96361; 96374; 99284; A9270; J2405; J7040

== ENCOUNTER 2019-04-16 16:28 | Emergency (ER) | payer BC ==
[2019-04-16] MEDS ORDERED: Sodium Chloride 0.9% 1,000 ML IV ONE (16:35)
--- NOTE | 2019-04-16 16:42 | EDM.PDOC ---
<Don Hernandez - Last Filed: 04/16/19 18:34> ED HPI GENERAL MEDICAL PROBLEM - General Chief Complaint: Abdominal Pain Stated Complaint: ABD PAIN Time Seen by Provider: 04/16/19 16:42 Source of Information: Reports: Patient - History of Present Illness INITIAL COMMENTS - FREE TEXT/NARRATIVE: HISTORY AND PHYSICAL: History of present illness: [patient has had abdominal pain in epigastrium off and on over 2 weeks with eating, today on exam she has pain in RLQ +n/v/ no f/c/s/cp/sob/had/palp h/o Crohn's Dz ] Review of systems: As per history of present illness and below otherwise all systems reviewed and negative. Past medical history: As per history of present illness and as reviewed below otherwise noncontributory. Surgical history: As per history of present illness and as reviewed below otherwise noncontributory. Social history: No reported history of drug or alcohol abuse. Family history: As per history of present illness and as reviewed below otherwise noncontributory. Physical exam: HEENT: Atraumatic, normocephalic, pupils reactive, negative for conjunctival pallor or scleral icterus, mucous membranes moist, throat clear, neck supple, nontender, trachea midline. Lungs: Clear to auscultation, breath sounds equal bilaterally, chest nontender. Heart: S1S2, regular, negative for clicks, rubs, or JVD. Abdomen: Soft, nondistended, non focal tenderness on deep palpation Negative for masses or hepatosplenomegaly. Negative for costovertebral tenderness. Pelvis: Stable nontender. Genitourinary: Deferred. Rectal: Deferred. Extremities: Atraumatic, negative for cords or calf pain. Neurovascular unremarkable. Neuro: Awake, alert, oriented. Cranial nerves II through XII unremarkable. Cerebellum unremarkable. Motor and sensory unremarkable throughout. Exam nonfocal. Diagnostics: [cbc, cmp ,ua hcg abd/pelv w ] Therapeutics: [ns toradol -not provided due to allergy list jamshid signed out to dr. mascorro to follow cmp and ct abd/pelvis and redirect/ disposition ] Impression: [abd pain ]h/o crohn'z Dz Definitive disposition and diagnosis as appropriate pending reevaluation and review of above. Abdominal Pain Score (Numeric/FACES): 5 - Related Data Allergies Allergy/AdvReac Type Severity Reaction Status Date / Time budesonide Allergy Numbness Verified 04/16/19 16:55 garlic Allergy Shortness Verified 04/16/19 16:55 of Breath NSAIDS (Non-Steroidal Allergy Nausea Verified 04/16/19 16:55 Anti-Inflamma prednisone Allergy Rash Verified 04/16/19 16:55 Sulfa (Sulfonamide Allergy Rash Verified 04/16/19 16:55 Antibiotics) pine trees Allergy Hives Uncoded 04/16/19 16:55 Home Meds: Home Meds buPROPion [Wellbutrin] 300 mg PO DAILY 05/25/17 [History] Ondansetron [Zofran ODT] 4 mg PO Q6H PRN 07/24/18 [History] ClonazePAM [KlonoPIN] 0.5 mg PO ASDIRECTED 04/16/19 [History] FLUoxetine [PROzac] 10 mg PO DAILY 04/16/19 [History] Past Medical History - Past Health History Medical/Surgical History: Denies Medical/Surgical History HEENT History: Reports: None Cardiovascular History: Reports: None Respiratory History: Reports: Asthma Gastrointestinal History: Reports: Other (See Below) Other Gastrointestinal History: chron's Genitourinary History: Reports: None DATABASE CONSULTANT History: Reports: 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 History: Reports: Back Pain, Chronic Neurological History: Reports: None Psychiatric History: Reports: Anxiety, Depression, OCD Endocrine/Metabolic History: Reports: None Hematologic History: Reports: None Oncologic (Cancer) History: Reports: None Dermatologic History: Reports: None - Infectious Disease History Infectious Disease History: Reports: None - Past Surgical History GI Surgical History: Reports: Colonoscopy, EGD Social & Family History - Family History Family Medical History: Noncontributory Other Dermatologic Family History: ovarian CA - Caffeine Use Caffeine Use: Reports: None Course - Vital Signs Last Recorded V/S: Last Vital Signs Temp 35.7 C 04/16/19 16:57 Pulse 98 04/16/19 19:18 Resp 18 04/16/19 19:18 BP 139/97 H 04/16/19 19:18 Pulse Ox 100 04/16/19 19:18 - Orders/Labs/Meds Orders: Active Orders 24 hr Category Date Time Status Notify Provider Consults [RC] ASDIRECTED Care 04/16/19 19:31 Active Consult to Physician [CONS] Stat Cons 04/16/19 19:31 Active Labs: Laboratory Tests 04/16/19 04/16/19 04/16/19 Range/Units 17:34 17:34 17:43 WBC 11.40 H (4.0-11.0) K/uL RBC 4.54 (4.30-5.90) M/uL Hgb 13.0 (12.0-16.0) g/dL Hct 39.7 (36.0-46.0) % MCV 87.4 (80.0-98.0) fL MCH 28.6 (27.0-32.0) pg MCHC 32.7 (31.0-37.0) g/dL RDW Std Deviation 46.0 (28.0-62.0) fl RDW Coeff of Zaid 14 (11.0-15.0) % Plt Count 408 H (150-400) K/uL MPV 11.80 (7.40-12.00) fL Neut % (Auto) 67.9 (48.0-80.0) % Lymph % (Auto) 17.8 (16.0-40.0) % [place] % (Auto) 12.5 (0.0-15.0) % Eos % (Auto) 1.2 (0.0-7.0) % Baso % (Auto) 0.6 (0.0-1.5) % Neut # (Auto) 7.7 H (1.4-5.7) K/uL Lymph # (Auto) 2.0 (0.6-2.4) K/uL [place] # (Auto) 1.4 H (0.0-0.8) K/uL Eos # (Auto) 0.1 (0.0-0.7) K/uL Baso # (Auto) 0.1 (0.0-0.1) K/uL Nucleated RBC % 0.0 /100WBC Nucleated RBCs # 0 K/uL Sodium (136-145) mmol/L Potassium (3.5-5.1) mmol/L Chloride (98-107) mmol/L Carbon Dioxide (21.0-32.0) mmol/L BUN (7.0-18.0) mg/dL Creatinine (0.6-1.0) mg/dL Est Cr Clr Drug Dosing mL/min Estimated GFR (MDRD) ml/min Glucose (74-106) mg/dL Calcium (8.5-10.1) mg/dL Total Bilirubin (0.2-1.0) mg/dL AST (15-37) IU/L ALT (14-63) IU/L Alkaline Phosphatase (46-116) U/L Total Protein (6.4-8.2) g/dL Albumin (3.4-5.0) g/dL Globulin (2.6-4.0) g/dL Albumin/Globulin Ratio (0.9-1.6) Lipase (73-393) U/L Urine Color YELLOW Urine Appearance CLEAR Urine pH 7.0 (5.0-8.0) Ur Specific [place] 1.015 (1.001-1.035) Urine Protein NEGATIVE (NEGATIVE) mg/dL Urine Glucose (UA) NEGATIVE (NEGATIVE) mg/dL Urine Ketones NEGATIVE (NEGATIVE) mg/dL Urine Occult Blood NEGATIVE (NEGATIVE) Urine Nitrite NEGATIVE (NEGATIVE) Urine Bilirubin NEGATIVE (NEGATIVE) Urine Urobilinogen 0.2 (<2.0) EU/dL Ur Leukocyte Esterase NEGATIVE (NEGATIVE) Urine HCG, Qual NEGATIVE (NEGATIVE) 04/16/19 04/16/19 Range/Units 17:43 17:43 WBC (4.0-11.0) K/uL RBC (4.30-5.90) M/uL Hgb (12.0-16.0) g/dL Hct (36.0-46.0) % MCV (80.0-98.0) fL MCH (27.0-32.0) pg MCHC (31.0-37.0) g/dL RDW Std Deviation (28.0-62.0) fl RDW Coeff of Zaid (11.0-15.0) % Plt Count (150-400) K/uL MPV (7.40-12.00) fL Neut % (Auto) (48.0-80.0) % Lymph % (Auto) (16.0-40.0) % [place] % (Auto) (0.0-15.0) % Eos % (Auto) (0.0-7.0) % Baso % (Auto) (0.0-1.5) % Neut # (Auto) (1.4-5.7) K/uL Lymph # (Auto) (0.6-2.4) K/uL [place] # (Auto) (0.0-0.8) K/uL Eos # (Auto) (0.0-0.7) K/uL Baso # (Auto) (0.0-0.1) K/uL Nucleated RBC % /100WBC Nucleated RBCs # K/uL Sodium 140 (136-145) mmol/L Potassium 3.8 (3.5-5.1) mmol/L Chloride 102 (98-107) mmol/L Carbon Dioxide 28.4 (21.0-32.0) mmol/L BUN 8 (7.0-18.0) mg/dL Creatinine 0.9 (0.6-1.0) mg/dL Est Cr Clr Drug Dosing 80.04 mL/min Estimated GFR (MDRD) > 60.0 ml/min Glucose 78 (74-106) mg/dL Calcium 8.6 (8.5-10.1) mg/dL Total Bilirubin 0.3 (0.2-1.0) mg/dL AST 15 (15-37) IU/L ALT 24 (14-63) IU/L Alkaline Phosphatase 129 H (46-116) U/L Total Protein 7.3 (6.4-8.2) g/dL Albumin 3.3 L (3.4-5.0) g/dL Globulin 4.0 (2.6-4.0) g/dL Albumin/Globulin Ratio 0.8 L (0.9-1.6) Lipase 89 (73-393) U/L Urine Color Urine Appearance Urine pH (5.0-8.0) Ur Specific [place] (1.001-1.035) Urine Protein (NEGATIVE) mg/dL Urine Glucose (UA) (NEGATIVE) mg/dL Urine Ketones (NEGATIVE) mg/dL Urine Occult Blood (NEGATIVE) Urine Nitrite (NEGATIVE) Urine Bilirubin (NEGATIVE) Urine Urobilinogen (<2.0) EU/dL Ur Leukocyte Esterase (NEGATIVE) Urine HCG, Qual (NEGATIVE) Meds: Medications Discontinued Medications Generic Name Dose Route Start Last Admin Trade Name Freq PRN Reason Stop Dose Admin Sodium Chloride 1,000 mls @ 999 mls/hr 04/16/19 16:35 04/16/19 17:36 Normal Saline IV 04/16/19 17:35 999 mls/hr STAT ONE Administration Iopamidol 100 ml 04/16/19 19:07 04/16/19 19:07 Isovue-370 (76%) IVPUSH 04/16/19 19:08 100 ml ONETIME STA Administration Ketorolac Tromethamine 30 mg 04/16/19 17:40 04/16/19 18:05 Toradol IVPUSH 04/16/19 17:41 Not Given ONETIME ONE Morphine Sulfate 2 mg 04/16/19 19:12 04/16/19 19:19 Morphine IVPUSH 04/16/19 19:13 2 mg ONETIME ONE Administration Ondansetron HCl 8 mg 04/16/19 17:41 04/16/19 17:57 Zofran IVPUSH 04/16/19 17:42 8 mg ONETIME ONE Administration Departure - Departure Disposition: Home, Self-Care 01 Clinical Impression: Exacerbation of Crohn's disease Qualifiers: Digestive disease complication type: unspecified complication Qualified Code(s) : K50.919 - Crohn's disease, unspecified, with unspecified complications - Discharge Information Referrals: Elza Barraza NP [Primary Care Provider] - Forms: ED Department Discharge Additional Instructions: The following information is given to patients seen in the emergency department who are being discharged to home. This information is to outline your options for follow-up care. We provide all patients seen in our emergency department with a follow-up referral. The need for follow-up, as well as the timing and circumstances, are variable depending upon the specifics of your emergency department visit. If you don't have a primary care physician on staff, we will provide you with a referral. We always advise you to contact your personal physician following an emergency department visit to inform them of the circumstance of the visit and for follow-up with them and/or the need for any referrals to a consulting specialist. The emergency department will also refer you to a specialist when appropriate. This referral assures that you have the opportunity for followup care with a specialist. All of these measure are taken in an effort to provide you with optimal care, which includes your followup. Under all circumstances we always encourage you to contact your private physician who remains a resource for coordinating your care. When calling for followup care, please make the office aware that this follow-up is from your recent emergency room visit. If for any reason you are refused follow-up, please contact the [facility] emergency department at and ask to speak to the emergency department charge nurse. [facility] [address] [place] [id number] Please contact [facility] tomorrow and get in for a follow-up appointment as you discussed with Dr. Leroy. Push hydration and use her home medication and add to it the dicyclomine/dental you have been given from [facility]. Return to ER as needed and as discussed Sepsis Event Note - Focused Exam Vital Signs: Vital Signs Temp Pulse Resp BP Pulse Ox 04/16/19 19:18 98 18 139/97 H 100 04/16/19 18:02 95 18 135/85 98 04/16/19 16:57 35.7 C 106 H 16 142/90 H 98 Date Exam was Performed: 04/16/19 Time Exam was Performed: 18:34 - My Orders Last 24 Hours: My Active Orders 04/16/19 19:31 Notify Provider Consults [RC] ASDIRECTED Consult to Physician [CONS] Stat - Assessment/Plan Last 24 Hours: My Active Orders 04/16/19 19:31 Notify Provider Consults [RC] ASDIRECTED Consult to Physician [CONS] Stat <Arianna Mascorro - Last Filed: 04/16/19 20:34> ED HPI GENERAL MEDICAL PROBLEM - History of Present Illness INITIAL COMMENTS - FREE TEXT/NARRATIVE: This is Dr. Mascorro dictating an addendum note as I assumed care of this case at 7 PM. The labs of been reviewed by Dr. Walker and Annie and the CT scan was endorsed to me to follow-up. The radiologist has contacted me about inflammation and thickening of the small bowel to the terminal ileum he does not see any signs of appendicitis and he thinks the appendix looks normal. He does see an area that looks like a sinus tract near the terminal ileum as well as a few gas bubbles in the right lower quadrant that he is not sure if they are contained or if there is a small microperforation. I reevaluated the patient myself and she does have tenderness in the epigastrium and the right lower quadrant but there is no rebound or guarding. She overall looks very comfortable. I did give her a small dose of morphine here in the ED and she tells me that she does not have a GI specialist but does follow at [facility] with the nurse practitioner. She says that she has not been on a biologic but she is on prednisone. She tells me that whenever she has a Crohn's flareup it is in the right lower quadrant so she is not surprised. I have described to her the CT scan findings and I told her that I have consulted Dr. Leroy to come in and lay hands on her have a conversation with her and review the CT for disposition and further care and she is agreeable. Dr. Leroy is here reviewing the CAT scan and examining the patient at 8:05 PM. We will discuss her disposition following his evaluation Please see Dr. Leroy's consultation but he has advised me that the patient will be going home and needs to follow-up at [facility] and get in with gastroenterology. He agrees with Trey for home and the patient is aware of this care plan. Please add to impression above: Crohn's flareup ED ROS GENERAL - Review of Systems Review Of Systems: Comprehensive ROS is negative, except as noted in HPI. ED EXAM, GENERAL - Physical Exam Exam: See Below (see dictation) Departure - Departure Time of Disposition: 20:34 Condition: Good Sepsis Event Note - Focused Exam Date Exam was Performed: 04/16/19 Time Exam was Performed: 20:33
[2019-04-16] MEDS ORDERED: Ondansetron 4 MG/2 ML SDV IVPUSH ONE (17:41)
[2019-04-16] MEDS: Ketorolac 30 MG/ML SDV IVPUSH ONE ×2 (17:59→18:05)
[2019-04-16 18:36] LABS: BLOOD UREA NITROGEN,BUN 8 mg/dL (7.0-18.0); CARBON DIOXIDE,CO2 28.4 mmol/L (21.0-32.0); CHLORIDE,CL 102 mmol/L (98-107); GLUCOSE RANDOM 78 mg/dL (74-106); POTASSIUM,K 3.8 mmol/L (3.5-5.1); SODIUM,NA 140 mmol/L (136-145)
[2019-04-16] MEDS ORDERED: Iopamidol 755 Mg/ML 100 ML Bottle IVPUSH STA (19:07)
[2019-04-16] MEDS ORDERED: Morphine 2 MG/ML Syringe IVPUSH ONE (19:12)
--- NOTE | 2019-04-16 19:27 | CT ---
INDICATION: Abdominal pain, nausea. History of Crohn`s disease. TECHNIQUE: CT Abdomen and pelvis with i.v. contrast. Coronal and sagittal reformats were obtained. CONTRAST: 100 mL Isovue 370 COMPARISON: 06/19/2017 FINDINGS: Lower chest: Unremarkable. Liver: Small ill-defined hypodensity is present in the left lobe of the liver, abutting the fissure for the ligamentum teres, which is most likely due to focal fatty infiltration or due to third inflow phenomenon. Spleen: Unremarkable. Pancreas: Unremarkable. Gallbladder: Unremarkable. Kidney: There is a 9 mm cyst present in the lower pole of the left kidney. Both kidneys are normal in enhancement. Adrenal: Unremarkable. Bowel: Moderate to severe wall thickening distal small bowel loops to the terminal ileum noted. On coronal image 31 there is a medially directed structure measuring 11 mm in diameter with mucosal enhancement seen and appears to communicate with the terminal ileum just proximal to the ileocecal valve. The appendix is unremarkable in appearance and best seen on images 104-113. Mild inflammatory changes are present along the right lower quadrant with 2 gas bubbles seen on image 94. Vascular: Unremarkable. Lymph: Unremarkable. Peritoneum: Unremarkable. No pneumoperitoneum is seen. A small amount of pelvic ascites is noted. Pelvis: There is a cyst or follicle present in the left ovary measuring 1.9 cm. Soft tissue: Unremarkable. Bone: Unremarkable for age. IMPRESSIONS: 1. Moderate to severe wall thickening distal small bowel loops to the terminal ileum noted. Findings likely due to active Crohn`s disease. 2. On coronal image 31 there is a medially directed structure measuring 11 mm in diameter with mucosal enhancement seen and appears to communicate with the terminal ileum just proximal to the ileocecal valve. This may represent a sinus tract associated with Crohn`s disease. 3. Mild inflammatory changes are present along the right lower quadrant with 2 gas bubbles seen on image 94. It is difficult to determine if these gas bubbles are intraluminal or extraluminal given the adjacent inflammatory changes. The findings were discussed with Dr. Wagner at 7:26 PM. Dictated by Eliot Lynn MD @ 04/16/2019 7:26:09 PM Please note that all CT scans at this facility use dose modulation, iterative reconstruction, and/or weight-based dosing when appropriate to reduce radiation dose to as low as reasonably achievable. Dictated by: Eliot Lynn MD @ 04/16/2019 19:26:33 (Electronically Signed)
--- NOTE | 2019-04-16 20:40 | PCM.CONS ---
H&P History of Present Illness - General Date of Service: 04/16/19 Admit Problem/Dx: Abdominal pain. 4 year history of Crohn's disease. 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 Source of Information: Patient History Limitations: Reports: No Limitations - History of Present Illness Initial Comments - Free Text/Narative: Patient is a 23-year-old female with a 4 year history of Crohn's disease. For the last 3-4 weeks, she's been having increasing abdominal discomfort. She is finding more foods that she is intolerant of. The pain became significant enough today that she presented to the emergency room and was evaluated by Dr. Hernandez and Dr. Wagner. CT scan of the abdomen was done suggesting a flareup of her Crohn's disease and surgical consultation was requested. Duration of Symptoms: Reports: Week(s):, Chronic, Constant, Getting Worse Location: Reports: Abdomen Quality: Reports: Ache, Pressure, Same as Previous Episode Severity: Moderate Improves with: Reports: None, Medication Context: Reports: Sick Contact Associated Symptoms: Reports: Loss of Appetite. Denies: Nausea/Vomiting Abdominal Pain Score (Numeric/FACES): 5 - Related Data Allergies/Adverse Reactions: Allergies Allergy/AdvReac Type Severity Reaction Status Date / Time budesonide Allergy Numbness Verified 04/16/19 16:55 garlic Allergy Shortness Verified 04/16/19 16:55 of Breath NSAIDS (Non-Steroidal Allergy Nausea Verified 04/16/19 16:55 Anti-Inflamma prednisone Allergy Rash Verified 04/16/19 16:55 Sulfa (Sulfonamide Allergy Rash Verified 04/16/19 16:55 Antibiotics) pine trees Allergy Hives Uncoded 04/16/19 16:55 Home Medications: Home Meds buPROPion [Wellbutrin] 300 mg PO DAILY 05/25/17 [History] Ondansetron [Zofran ODT] 4 mg PO Q6H PRN 07/24/18 [History] ClonazePAM [KlonoPIN] 0.5 mg PO ASDIRECTED 04/16/19 [History] FLUoxetine [PROzac] 10 mg PO DAILY 04/16/19 [History] Past Medical History - Past Health History Medical/Surgical History: Denies Medical/Surgical History HEENT History: Reports: None Cardiovascular History: Reports: None Respiratory History: Reports: Asthma Gastrointestinal History: Reports: Other (See Below) Other Gastrointestinal History: Crohn's Disease Genitourinary History: Reports: None, Renal Calculus [employer] History: Reports: : 2 Para: 2 LMP (Approximate): Other (See Below) (Periods are irregular) 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 History: Reports: Back Pain, Chronic Neurological History: Reports: None Psychiatric History: Reports: Anxiety, Depression, OCD Endocrine/Metabolic History: Reports: None Hematologic History: Reports: None Oncologic (Cancer) History: Reports: None Dermatologic History: Reports: None - Infectious Disease History Infectious Disease History: Reports: None - Past Surgical History GI Surgical History: Reports: Colonoscopy, EGD Social & Family History - Family History Family Medical History: Noncontributory Other GI Family History: Paternal Grandmother from Crohn's disease. Oncologic: Reports: Ovarian (Maternal Grandmother) - Tobacco Use Smoking Status *Q: Unknown Ever Smoked Second Hand Smoke Exposure: No - Caffeine Use Caffeine Use: Reports: None - Recreational Drug Use Recreational Drug Use: No H&P Review of Systems - Review of Systems: Review Of Systems: See Below General: Reports: Malaise, Decreased Appetite. Denies: Fever, Chills, Weakness , Fatigue HEENT: Reports: No Symptoms Pulmonary: Denies: Shortness of Breath, Wheezing, Pleuritic Chest Pain Cardiovascular: Denies: Chest Pain Gastrointestinal: Reports: Abdominal Pain, Anorexia, Decreased Appetite, Flatus. Denies: Black Stool, Bloody Stool, Constipation, Diarrhea, Distension, Hematemesis, Hematochezia, Melena, Nausea, Vomiting Genitourinary: Denies: Dysuria, Frequency, Burning, Pain, Urgency 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: Reports: No Symptoms Skin: Reports: No Symptoms Psychiatric: Reports: No Symptoms Neurological: Reports: No Symptoms Hematologic/Lymphatic: Reports: No Symptoms Immunologic: Reports: No Symptoms Exam - Exam Exam: See Below - Vital Signs Vital Signs: Last Vital Signs Temp 96.3 F 04/16/19 16:57 Pulse 98 04/16/19 19:18 Resp 18 04/16/19 19:18 BP 139/97 H 04/16/19 19:18 Pulse Ox 100 04/16/19 19:18 Weight: 114 lb - Exam Quality Assessment: No: Supplemental Oxygen, Central Line/PICC General: Alert, Oriented, Cooperative, Mild Distress HEENT: Conjunctiva Clear, EACs Clear, Pupils Equal, Pupils Reactive. No: Abnormal Pupils, Scleral Icterus Neck: Supple, Trachea Midline, +2 Carotid Pulse wo Bruit Lungs: Clear to Auscultation, Normal Respiratory Effort. No: Rales, Rhonchi, Wheezing Cardiovascular: Regular Rate, Regular Rhythm. No: Tachycardia GI/Abdominal Exam: Normal Bowel Sounds, Soft, Non-Tender. No: Guarding, Rigid, Rebound (Female) Exam: Deferred Rectal (Female) Exam: Deferred Back Exam: Normal Inspection Extremities: Normal Inspection, Normal Range of Motion Peripheral Pulses: 4+: Posterior Tibial (L), Posterior Tibial (R), Dorsalis Pedis (L), Dorsalis Pedis (R) Skin: Warm, Dry, Intact Neurological: Cranial Nerves Intact, Reflexes Equal Bilateral Neuro Extensive - Mental Status: Alert, Oriented x3, Normal Mood/Affect Psychiatric: Alert, Normal Affect, Normal Mood. No: Anxious - Patient Data Lab Results Last 24 hrs: Laboratory Results - last 24 hr 04/16/19 04/16/19 04/16/19 Range/Units 17:34 17:34 17:43 WBC 11.40 H (4.0-11.0) K/uL RBC 4.54 (4.30-5.90) M/uL Hgb 13.0 (12.0-16.0) g/dL Hct 39.7 (36.0-46.0) % MCV 87.4 (80.0-98.0) fL MCH 28.6 (27.0-32.0) pg MCHC 32.7 (31.0-37.0) g/dL RDW Std Deviation 46.0 (28.0-62.0) fl RDW Coeff of Zaid 14 (11.0-15.0) % Plt Count 408 H (150-400) K/uL MPV 11.80 (7.40-12.00) fL Neut % (Auto) 67.9 (48.0-80.0) % Lymph % (Auto) 17.8 (16.0-40.0) % [place] % (Auto) 12.5 (0.0-15.0) % Eos % (Auto) 1.2 (0.0-7.0) % Baso % (Auto) 0.6 (0.0-1.5) % Neut # (Auto) 7.7 H (1.4-5.7) K/uL Lymph # (Auto) 2.0 (0.6-2.4) K/uL [place] # (Auto) 1.4 H (0.0-0.8) K/uL Eos # (Auto) 0.1 (0.0-0.7) K/uL Baso # (Auto) 0.1 (0.0-0.1) K/uL Nucleated RBC % 0.0 /100WBC Nucleated RBCs # 0 K/uL Sodium (136-145) mmol/L Potassium (3.5-5.1) mmol/L Chloride (98-107) mmol/L Carbon Dioxide (21.0-32.0) mmol/L BUN (7.0-18.0) mg/dL Creatinine (0.6-1.0) mg/dL Est Cr Clr Drug Dosing mL/min Estimated GFR (MDRD) ml/min Glucose (74-106) mg/dL Calcium (8.5-10.1) mg/dL Total Bilirubin (0.2-1.0) mg/dL AST (15-37) IU/L ALT (14-63) IU/L Alkaline Phosphatase (46-116) U/L Total Protein (6.4-8.2) g/dL Albumin (3.4-5.0) g/dL Globulin (2.6-4.0) g/dL Albumin/Globulin Ratio (0.9-1.6) Lipase (73-393) U/L Urine Color YELLOW Urine Appearance CLEAR Urine pH 7.0 (5.0-8.0) Ur Specific [place] 1.015 (1.001-1.035) Urine Protein NEGATIVE (NEGATIVE) mg/dL Urine Glucose (UA) NEGATIVE (NEGATIVE) mg/dL Urine Ketones NEGATIVE (NEGATIVE) mg/dL Urine Occult Blood NEGATIVE (NEGATIVE) Urine Nitrite NEGATIVE (NEGATIVE) Urine Bilirubin NEGATIVE (NEGATIVE) Urine Urobilinogen 0.2 (<2.0) EU/dL Ur Leukocyte Esterase NEGATIVE (NEGATIVE) Urine HCG, Qual NEGATIVE (NEGATIVE) 04/16/19 04/16/19 Range/Units 17:43 17:43 WBC (4.0-11.0) K/uL RBC (4.30-5.90) M/uL Hgb (12.0-16.0) g/dL Hct (36.0-46.0) % MCV (80.0-98.0) fL MCH (27.0-32.0) pg MCHC (31.0-37.0) g/dL RDW Std Deviation (28.0-62.0) fl RDW Coeff of Zaid (11.0-15.0) % Plt Count (150-400) K/uL MPV (7.40-12.00) fL Neut % (Auto) (48.0-80.0) % Lymph % (Auto) (16.0-40.0) % [place] % (Auto) (0.0-15.0) % Eos % (Auto) (0.0-7.0) % Baso % (Auto) (0.0-1.5) % Neut # (Auto) (1.4-5.7) K/uL Lymph # (Auto) (0.6-2.4) K/uL [place] # (Auto) (0.0-0.8) K/uL Eos # (Auto) (0.0-0.7) K/uL Baso # (Auto) (0.0-0.1) K/uL Nucleated RBC % /100WBC Nucleated RBCs # K/uL Sodium 140 (136-145) mmol/L Potassium 3.8 (3.5-5.1) mmol/L Chloride 102 (98-107) mmol/L Carbon Dioxide 28.4 (21.0-32.0) mmol/L BUN 8 (7.0-18.0) mg/dL Creatinine 0.9 (0.6-1.0) mg/dL Est Cr Clr Drug Dosing 80.04 mL/min Estimated GFR (MDRD) > 60.0 ml/min Glucose 78 (74-106) mg/dL Calcium 8.6 (8.5-10.1) mg/dL Total Bilirubin 0.3 (0.2-1.0) mg/dL AST 15 (15-37) IU/L ALT 24 (14-63) IU/L Alkaline Phosphatase 129 H (46-116) U/L Total Protein 7.3 (6.4-8.2) g/dL Albumin 3.3 L (3.4-5.0) g/dL Globulin 4.0 (2.6-4.0) g/dL Albumin/Globulin Ratio 0.8 L (0.9-1.6) Lipase 89 (73-393) U/L Urine Color Urine Appearance Urine pH (5.0-8.0) Ur Specific [place] (1.001-1.035) Urine Protein (NEGATIVE) mg/dL Urine Glucose (UA) (NEGATIVE) mg/dL Urine Ketones (NEGATIVE) mg/dL Urine Occult Blood (NEGATIVE) Urine Nitrite (NEGATIVE) Urine Bilirubin (NEGATIVE) Urine Urobilinogen (<2.0) EU/dL Ur Leukocyte Esterase (NEGATIVE) Urine HCG, Qual (NEGATIVE) Result Diagrams: 04/16/19 17:43 04/16/19 17:43 Sepsis Event Note - Evaluation Sepsis Screening Result: No Definite Risk - Focused Exam Vital Signs: Vital Signs Temp Pulse Resp BP Pulse Ox 04/16/19 19:18 98 18 139/97 H 100 04/16/19 18:02 95 18 135/85 98 04/16/19 16:57 96.3 F 106 H 16 142/90 H 98 Date Exam was Performed: 04/16/19 Time Exam was Performed: 20:35 Consult PN Assessment/Plan Procedures: Procedures ASSAY OF AMYLASE (02/06/18) ASSAY OF LIPASE (02/06/18) ASSAY THYROID STIM HORMONE (06/16/18) BLOOD TYPING SEROLOGIC ABO (04/26/18) BLOOD TYPING SEROLOGIC RH(D) (04/26/18) C-REACTIVE PROTEIN (02/06/18) CHORIONIC GONADOTROPIN TEST (04/28/18) COMPLETE CBC W/AUTO DIFF WBC (07/24/18) COMPREHEN METABOLIC PANEL (07/24/18) CT ABD & PELVIS W/O CONTRAST (06/20/17) ECHO EXAM OF ABDOMEN (04/26/18) ELECTROCARDIOGRAM TRACING (09/23/17) EMERGENCY DEPT VISIT (07/24/18) EMERGENCY DEPT VISIT (11/03/17) EMERGENCY DEPT VISIT (09/23/17) EMERGENCY DEPT VISIT (05/25/17) EMERGENCY DEPT VISIT (03/16/17) EMERGENCY DEPT VISIT (08/14/16) HYDRATE IV INFUSION ADD-ON (07/24/18) HYDRATION IV INFUSION INIT (09/23/17) INJECTION FOR HIP X-RAY (11/16/17) MRI JOINT LWR EXTR W/O&W/DYE (11/16/17) MRI LUMBAR SPINE W/O DYE (11/26/17) NEEDLE LOCALIZATION BY XRAY (11/16/17) OB US < 14 WKS SINGLE FETUS (04/26/18) OB US LIMITED FETUS(S) (07/24/18) PT EVAL LOW COMPLEX 20 MIN (11/19/17) ROUTINE VENIPUNCTURE (07/24/18) THER/PROPH/DIAG INJ IV PUSH (07/24/18) THER/PROPH/DIAG INJ SC/IM (03/16/17) THER/PROPH/DIAG IV INF ADDON (06/20/17) THER/PROPH/DIAG IV INF INIT (06/20/17) TX/PRO/DX INJ NEW DRUG ADDON (02/06/18) TX/PRO/DX 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 (06/20/17) TX/PROPH/DG ADDL SEQ IV INF (06/20/17) URINALYSIS AUTO W/O SCOPE (07/24/18) URINALYSIS AUTO W/SCOPE (04/26/18) URINE CULTURE/COLONY COUNT (06/21/18) URINE TEST (02/06/18) US EXAM PELVIC COMPLETE (05/25/17) VITAMIN B-12 (06/16/18) VITAMIN D 25 HYDROXY (06/16/18) X-RAY EXAM CHEST 1 VIEW (09/23/17) X-RAY EXAM HIP UNI 2-3 VIEWS (11/02/17) X-RAY EXAM OF SHOULDER (03/16/17) X-RAY EXAM OF WRIST (09/02/17) X-RAY EXAM UNILAT RIBS/CHEST (03/16/17) (1) Exacerbation of Crohn's disease SNOMED Code(s): 32348975 Code(s): K50.90 - CROHN'S DISEASE, UNSPECIFIED, WITHOUT COMPLICATIONS Priority: High Current Visit: Yes Qualifiers: Digestive disease complication type: unspecified complication Qualified Code(s): K50.919 - Crohn's disease, unspecified, with unspecified complications (2) Abdominal pain SNOMED Code(s): 72303731 Code(s): R10.9 - UNSPECIFIED ABDOMINAL PAIN Priority: Medium Current Visit: No Qualifiers: Abdominal location: right lower quadrant Qualified Code(s): R10.31 - Right lower quadrant pain Problem List Initiated/Reviewed/Updated: Yes Plan: CT scan and report have been personally reviewed. I agree that I do not think there is any evidence for appendicitis. She does have very marked bowel wall thickening consistent with exacerbation of her Crohn's disease. Again, I do not feel that she has an acute surgical abdomen. She would like to go home. I strongly encouraged her to establish care with a physician at [facility] as her nurse practitioner has left. I also think she would benefit from gas to a neurologic consultation and management of her Crohn's disease.
[2019-04-16 20:56] VITALS: BP 123/91; PULSE 90
== END 2019-04-16 20:53 | disposition home or self-care (01) ==
LOC: MW.ED 16:28
DX: K50.919 Crohn's disease, unspecified, with unspecified complications (principal); F41.9 Anxiety disorder, unspecified; F32.9 Major depressive disorder, single episode, unspecified; Z88.8 Allergy status to other drugs, medicaments and biological substances; Z88.2 Allergy status to sulfonamides; Z91.018 Allergy to other foods; Z79.899 Other long term (current) drug therapy
CPT/HCPCS: 36415; 74177; 80053; 81003; 81025; 83690; 85025; 96361; 96374; 99284; J2270; J2405; J7030; Q9967; J1885

== ENCOUNTER 2019-06-11 20:05 | Emergency (ER) | payer BC ==
[2019-06-11] MEDS ORDERED: HYDROmorphone 1 MG/ML Syringe IVPUSH PRN ×2 (20:30→20:36)
[2019-06-11] MEDS ORDERED: Sodium Chloride 0.9% 1,000 ML IV ONE ×2 (20:30→22:44)
[2019-06-11] MEDS ORDERED: Ondansetron 4 MG/2 ML SDV IVPUSH ONE (20:30)
[2019-06-11 21:08] LABS: BLOOD UREA NITROGEN,BUN 11 mg/dL (7.0-18.0); CARBON DIOXIDE,CO2 28.6 mmol/L (21.0-32.0); CHLORIDE,CL 102 mmol/L (98-107); GLUCOSE RANDOM 95 mg/dL (74-106); LIPASE 116 U/L (73-393); POTASSIUM,K 3.3 mmol/L (3.5-5.1); SODIUM,NA 139 mmol/L (136-145)
[2019-06-11] MEDS ORDERED: Iopamidol 755 Mg/ML 100 ML Bottle IVPUSH STA (21:12)
[2019-06-11 21:55] VITALS: BP 128/78
--- NOTE | 2019-06-11 22:14 | CT ---
Indication: Abdominal pain. History of Crohn`s. Technique: Multiple contiguous axial images were obtained from the lung bases through the symphysis pubis after the intravenous administration of 100 milliliters Isovue 370. Please note that all CT scans at this facility use dose modulation, iterative reconstruction, and/or weight-based dosing when appropriate to reduce radiation dose to as low as reasonably achievable. Comparison: April 16, 2019. Findings: The lung bases are clear. No infiltrate, pleural effusion, or pneumothorax is identified. Heart is normal in size. No pericardial effusions identified. The liver, spleen, pancreas, adrenals, and kidneys are normal. The gallbladder is the contracted. No intrahepatic biliary ductal dilatation is identified. The liver is mildly enlarged measuring 21 centimeters in maximum dimension. No hydronephrosis is identified. In the pelvis, the uterus has a grossly normal morphology. The urinary bladder is grossly normal. The wall of the distal ileum is thickened. This is most consistent with Crohn`s disease. Mild inflammatory changes are identified in the right lower quadrant. Moderate amount of stool is identified within the colon. No free air is identified. The aorta is normal in caliber. No lytic or blastic lesions of the spine are identified. Impression: Thickening of the wall of the distal ileum, findings most consistent with active Crohn`s disease. Mild hepatomegaly. Please note that all CT scans at this facility use dose modulation, iterative reconstruction, and/or weight-based dosing when appropriate to reduce radiation dose to as low as reasonably achievable. Dictated by Darya Torres MD @ Jun 11 2019 10:07PM Signed by Dr. Darya Torres @ Jun 11 2019 10:12PM
[2019-06-11] MEDS ORDERED: oxyCODONE 5 MG Tab PO ONE (22:44)
[2019-06-11] MEDS ORDERED: Mesalamine Rectal Enema Susp 4 GM/60 ML Bottle RECTAL ONE (22:46)
--- NOTE | 2019-06-11 23:46 | EDM.PDOC ---
ED HPI GENERAL MEDICAL PROBLEM - General Chief Complaint: Abdominal Pain Stated Complaint: stomach pain Time Seen by Provider: 06/11/19 20:15 - History of Present Illness INITIAL COMMENTS - FREE TEXT/NARRATIVE: HPI 23-year-old female presents for evaluation of worsened broad upper abdominal burning pain that is waxing waning in nature was more significant this evening and is accompanied by nausea and vomiting, relieved with hot showers (now with decreased efficacy), is without further symptoms. Patient reports that she is previously trialed antacids without improvement, has had a negative HIDA scan, and is been diagnosed with Crohns disease by colonoscopy for which she is treated with 40 mg prednisone daily. Patient has pending care with Dr. Leandra Keane at [facility] in [facility] on 06/14/19. PCP: Lizet Garner RN, BSN, MS, WHNP-BC M/S/F/SocHx notable for: please see HPI; remainder reviewed with patient and in chart. ROS: Negative constitutional, eye, cardiovascular, pulmonary, GI, , MSK, skin , neurologic, psychiatric, endocrine unless noted in the HPI. Exam HR 119, RR 18, BP 128/9 one, T 36.7C, SaO2 97% on room air. Gen: Pleasant, non-toxic appearing, resting co in mild discomfort mfortably. HEENT: NC, AT, PEERL, EOMI. Resp: Clear to auscultation bilaterally, normal work of breathing, no accessory muscle usage. Card: Regular rate and rhythm with no murmurs, rubs, or gallops, extremities warm and well perfused. GI: Non-tender to palpation throughout all quadrants, no focal tenderness at McBurney's point, negative Berg's sign, non-distended, no rebound or guarding. : No suprapubic tenderness to palpation. MSK: No visible deformities, strength and tone without visually appreciable deficit. Skin: Normal color with no visible lesions. Neuro: alert and oriented 3, no facial asymmetry, vision and hearing WNL. Psych: unusual mood and affect Labs / Imaging: WBC 19.07, HB 12.8, ESR 7, lactic acid 1.3, sodium 139, potassium 3.3, AST 13, LT 22, total bilirubin 0.3, alkaline phosphatase 95, lipase 116, CRP 0.80. UA with negative nitrate, small leukocyte esterase, 3-6 WBC, few epithelial cells, few bacteria. UDS negative. CT Abd/Pelvis: Thickening of the wall of the distal ileum, findings most consistent with active Crohn's disease. Mild hepatomegaly. MDM Previous chart, nursing note, labs, imaging, and vitals reviewed. A: 23-year-old female presents for evaluation of worsened broad upper abdominal burning pain that is waxing waning in nature was more significant this evening and is accompanied by nausea and vomiting, relieved with hot showers (now with decreased efficacy), is without further symptoms. DDx: pancreatitis, biliary disease (cholelithiasis, cholecystitis, choledocholithiasis, cholangitis, sphincter of Oddi dysfunction, gastritis, GERD , ulcer, gastroenteritis, acute appendicitis, nephrolithiasis, pyelonephritis, UTI, /ectopic , cannabinoid hyperemesis syndrome. Evaluation: imaging labs consistent with Crohns disease exacerbation. The leukocytosis is likely due to a combination of her Crohns exacerbation as well as secondary to her steroid use (40 mg prednisone daily). Reassuringly the patients ESR and CRP are within normal limits. The patient was given 1 L NS, 4 mg Zofran, and hydromorphone for initial symptom control. After the above results were noted Dr. Edmond, the GI physician quality liaison for Dr. Keane, was consulted by phone, laboratory science, history, exam, and imaging were reviewed. [place] 4 g daily was recommended in addition to pain control ( resuming patient is taking p.o. well). With follow-up with Dr. Keane on Wednesday. Mesalamine is not presently available at this facility, the patient was given 1 L NS for additional hydration, switch to oral analgesics (10 mg oxycodone), and was able to take PO well. Repeat evaluation 11:40 PM with patient resting comfortably, minimal tenderness on abdominal exam, and no rebound or guarding. Patient is comfortable with the plan and will be prescribed mesalamine for outpatient usage. Return to care precautions provided. Impression: abdominal pain, Crohns disease exacerbation Middle Abdomen Pain Score (Numeric/FACES): 6 - Related Data Allergies Allergy/AdvReac Type Severity Reaction Status Date / Time budesonide Allergy Numbness Verified 06/11/19 20:22 garlic Allergy Shortness Verified 06/11/19 20:22 of Breath NSAIDS (Non-Steroidal Allergy Nausea Verified 06/11/19 20:25 Anti-Inflamma prednisone Allergy Rash Verified 06/11/19 20:25 Sulfa (Sulfonamide Allergy Rash Verified 06/11/19 20:22 Antibiotics) pine trees Allergy Hives Uncoded 04/16/19 16:55 Home Meds: Home Meds buPROPion [Wellbutrin] 300 mg PO DAILY 05/25/17 [History] Ondansetron [Zofran ODT] 4 mg PO Q6H PRN 07/24/18 [History] ClonazePAM [KlonoPIN] 0.5 mg PO ASDIRECTED 04/16/19 [History] FLUoxetine [PROzac] 10 mg PO DAILY 04/16/19 [History] Escitalopram [Lexapro] 20 mg PO DAILY 06/11/19 [History] Hydrocodone/Acetaminophen [Clayton 5-325 Tablet] 1 - 2 each PO Q6H PRN #20 tablet 06/11/19 [Rx] Mesalamine 4 gm RC DAILY #8 enema 06/11/19 [Rx] Ondansetron [Zofran ODT] 4 mg PO Q6H PRN #20 tab.dis 06/11/19 [Rx] predniSONE [Prednisone] 20 mg PO DAILY 06/11/19 [History] Past Medical History - Past Health History Medical/Surgical History: Denies Medical/Surgical History HEENT History: Reports: None Cardiovascular History: Reports: None Respiratory History: Reports: Asthma Gastrointestinal History: Reports: Other (See Below) Other Gastrointestinal History: Crohn's Disease Genitourinary History: Reports: Renal 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: 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 History: Reports: Back Pain, Chronic Neurological History: Reports: None Psychiatric History: Reports: Anxiety, Depression, OCD Endocrine/Metabolic History: Reports: None Hematologic History: Reports: None Oncologic (Cancer) History: Reports: None Dermatologic History: Reports: None - Infectious Disease History Infectious Disease History: Reports: None - Past Surgical History GI Surgical History: Reports: Colonoscopy, EGD Female Surgical History: Reports: None Social & Family History - Family History Family Medical History: Noncontributory Other GI Family History: Paternal Grandmother from Crohn's disease. Other Dermatologic Family History: ovarian CA Oncologic: Reports: Ovarian - Tobacco Use Smoking Status *Q: Former Smoker Used Tobacco, but Quit: Yes Month/Year Tobacco Last Used: 05/2019 - Caffeine Use Caffeine Use: Reports: Coffee - Recreational Drug Use Recreational Drug Use: No ED ROS GENERAL - Review of Systems Review Of Systems: See Below ED EXAM, GENERAL - Physical Exam Exam: See Below Course - Vital Signs Last Recorded V/S: Last Vital Signs Temp 36.7 C 06/11/19 20:19 Pulse 93 06/11/19 21:55 Resp 16 06/11/19 21:55 BP 128/78 06/11/19 21:55 Pulse Ox 100 06/11/19 21:55 - Orders/Labs/Meds Orders: Active Orders 24 hr Category Date Time Status Communication Order [RC] STAT Care 06/11/19 22:45 Active HYDROmorphone [Dilaudid] Med 06/11/19 20:36 Active 0.5 - 1 mg IVPUSH Q1H PRN Sodium Chloride 0.9% [Normal Saline] 1,000 ml Med 06/11/19 22:44 Active IV .Bolus Medication Orders Hydromorphone HCl (Dilaudid) 0.5 - 1 mg IVPUSH Q1H PRN PRN Reason: Pain Last Admin: 06/11/19 20:51 Dose: 1 mg Sodium Chloride (Normal Saline) 1,000 mls @ 1,000 mls/hr IV .Bolus ONE Stop: 06/11/19 23:43 Last Admin: 06/11/19 23:05 Dose: 1,000 mls/hr Labs: Laboratory Tests 06/11/19 06/11/19 06/11/19 Range/Units 20:18 20:18 20:42 WBC 19.07 H (4.0-11.0) K/uL RBC 4.45 (4.30-5.90) M/uL Hgb 12.8 (12.0-16.0) g/dL Hct 39.0 (36.0-46.0) % MCV 87.6 (80.0-98.0) fL MCH 28.8 (27.0-32.0) pg MCHC 32.8 (31.0-37.0) g/dL RDW Std Deviation 55.2 (28.0-62.0) fl RDW Coeff of Zaid 17 H (11.0-15.0) % Plt Count 452 H (150-400) K/uL MPV 11.00 (7.40-12.00) fL Add Manual Diff YES Neutrophils % (Manual) 76 (48.0-80.0) % Lymphocytes % (Manual) 17 (16.0-40.0) % Monocytes % (Manual) 7 (0.0-15.0) % Nucleated RBC % 0.0 /100WBC Absolute Seg Neuts 14.5 H (1.4-5.7) Lymphocytes # (Manual) 3.2 H (0.6-2.4) Monocytes # (Manual) 1.3 H (0.0-0.8) Nucleated RBCs # 0 K/uL ESR (0-19) mm/hr Lactate (0.20-2.00) mmol/L Sodium (136-145) mmol/L Potassium (3.5-5.1) mmol/L Chloride (98-107) mmol/L Carbon Dioxide (21.0-32.0) mmol/L BUN (7.0-18.0) mg/dL Creatinine (0.6-1.0) mg/dL Est Cr Clr Drug Dosing mL/min Estimated GFR (MDRD) ml/min Glucose (74-106) mg/dL Calcium (8.5-10.1) mg/dL Total Bilirubin (0.2-1.0) mg/dL AST (15-37) IU/L ALT (14-63) IU/L Alkaline Phosphatase (46-116) U/L C-Reactive Protein (0.00-0.90) mg/dL Total Protein (6.4-8.2) g/dL Albumin (3.4-5.0) g/dL Globulin (2.6-4.0) g/dL Albumin/Globulin Ratio (0.9-1.6) Lipase (73-393) U/L Urine Color YELLOW Urine Appearance SLT CLOUDY Urine pH 6.0 (5.0-8.0) Ur Specific [place] 1.010 (1.001-1.035) Urine Protein NEGATIVE (NEGATIVE) mg/dL Urine Glucose (UA) NEGATIVE (NEGATIVE) mg/dL Urine Ketones NEGATIVE (NEGATIVE) mg/dL Urine Occult Blood NEGATIVE (NEGATIVE) Urine Nitrite NEGATIVE (NEGATIVE) Urine Bilirubin NEGATIVE (NEGATIVE) Urine Urobilinogen 0.2 (<2.0) EU/dL Ur Leukocyte Esterase SMALL H (NEGATIVE) Urine RBC 0-1 (0-2/HPF) Urine WBC 3-6 (0-5/HPF) Ur Epithelial Cells FEW (NONE-FEW) Urine Bacteria FEW (NEGATIVE) Urine Opiates Screen NEGATIVE (NEGATIVE) Ur Oxycodone Screen NEGATIVE (NEGATIVE) Urine Methadone Screen NEGATIVE (NEGATIVE) Ur Barbiturates Screen NEGATIVE (NEGATIVE) Ur Phencyclidine Scrn NEGATIVE (NEGATIVE) Ur Amphetamine Screen NEGATIVE (NEGATIVE) U Methamphetamines Scrn NEGATIVE (NEGATIVE) U Benzodiazepines Scrn NEGATIVE (NEGATIVE) U Cocaine Metab Screen NEGATIVE (NEGATIVE) U Marijuana (THC) Screen NEGATIVE (NEGATIVE) 06/11/19 06/11/19 06/11/19 Range/Units 20:42 20:42 20:42 WBC (4.0-11.0) K/uL RBC (4.30-5.90) M/uL Hgb (12.0-16.0) g/dL Hct (36.0-46.0) % MCV (80.0-98.0) fL MCH (27.0-32.0) pg MCHC (31.0-37.0) g/dL RDW Std Deviation (28.0-62.0) fl RDW Coeff of Zaid (11.0-15.0) % Plt Count (150-400) K/uL MPV (7.40-12.00) fL Add Manual Diff Neutrophils % (Manual) (48.0-80.0) % Lymphocytes % (Manual) (16.0-40.0) % Monocytes % (Manual) (0.0-15.0) % Nucleated RBC % /100WBC Absolute Seg Neuts (1.4-5.7) Lymphocytes # (Manual) (0.6-2.4) Monocytes # (Manual) (0.0-0.8) Nucleated RBCs # K/uL ESR 7 (0-19) mm/hr Lactate 1.3 (0.20-2.00) mmol/L Sodium 139 (136-145) mmol/L Potassium 3.3 L (3.5-5.1) mmol/L Chloride 102 (98-107) mmol/L Carbon Dioxide 28.6 (21.0-32.0) mmol/L BUN 11 (7.0-18.0) mg/dL Creatinine 0.9 (0.6-1.0) mg/dL Est Cr Clr Drug Dosing 78.63 mL/min Estimated GFR (MDRD) > 60.0 ml/min Glucose 95 (74-106) mg/dL Calcium 9.1 (8.5-10.1) mg/dL Total Bilirubin 0.3 (0.2-1.0) mg/dL AST 13 L (15-37) IU/L ALT 22 (14-63) IU/L Alkaline Phosphatase 95 (46-116) U/L C-Reactive Protein 0.80 (0.00-0.90) mg/dL Total Protein 6.8 (6.4-8.2) g/dL Albumin 3.3 L (3.4-5.0) g/dL Globulin 3.5 (2.6-4.0) g/dL Albumin/Globulin Ratio 0.9 (0.9-1.6) Lipase 116 (73-393) U/L Urine Color Urine Appearance Urine pH (5.0-8.0) Ur Specific [place] (1.001-1.035) Urine Protein (NEGATIVE) mg/dL Urine Glucose (UA) (NEGATIVE) mg/dL Urine Ketones (NEGATIVE) mg/dL Urine Occult Blood (NEGATIVE) Urine Nitrite (NEGATIVE) Urine Bilirubin (NEGATIVE) Urine Urobilinogen (<2.0) EU/dL Ur Leukocyte Esterase (NEGATIVE) Urine RBC (0-2/HPF) Urine WBC (0-5/HPF) Ur Epithelial Cells (NONE-FEW) Urine Bacteria (NEGATIVE) Urine Opiates Screen (NEGATIVE) Ur Oxycodone Screen (NEGATIVE) Urine Methadone Screen (NEGATIVE) Ur Barbiturates Screen (NEGATIVE) Ur Phencyclidine Scrn (NEGATIVE) Ur Amphetamine Screen (NEGATIVE) U Methamphetamines Scrn (NEGATIVE) U Benzodiazepines Scrn (NEGATIVE) U Cocaine Metab Screen (NEGATIVE) U Marijuana (THC) Screen (NEGATIVE) Meds: Medications Generic Name Dose Route Start Last Admin Trade Name Freq PRN Reason Stop Dose Admin Hydromorphone HCl 0.5 - 1 mg 06/11/19 20:36 06/11/19 20:51 Dilaudid IVPUSH 1 mg Q1H PRN Administration Pain Sodium Chloride 1,000 mls @ 1,000 mls/hr 06/11/19 22:44 06/11/19 23:05 Normal Saline IV 06/11/19 23:43 1,000 mls/hr .Bolus ONE Administration Discontinued Medications Generic Name Dose Route Start Last Admin Trade Name Freq PRN Reason Stop Dose Admin Hydromorphone HCl 0.5 - 1 mg 06/11/19 20:30 Dilaudid IVPUSH Q1H PRN Pain Sodium Chloride 1,000 mls @ 1,000 mls/hr 06/11/19 20:30 06/11/19 20:48 Normal Saline IV 06/11/19 21:29 1,000 mls/hr .Bolus ONE Administration Iopamidol 100 ml 06/11/19 21:12 06/11/19 21:36 Isovue-370 (76%) IVPUSH 06/11/19 21:13 100 ml ONETIME STA Administration Mesalamine 4 gm 06/11/19 22:46 06/11/19 23:18 Rowasa RECTAL 06/11/19 22:47 Not Given ONETIME ONE Ondansetron HCl 4 mg 06/11/19 20:30 06/11/19 20:49 Zofran IVPUSH 06/11/19 20:31 4 mg ONETIME ONE Administration Oxycodone HCl 10 mg 06/11/19 22:44 06/11/19 23:05 Oxycodone PO 06/11/19 22:45 10 mg ONETIME ONE Administration Departure - Departure Time of Disposition: 23:42 Disposition: Home, Self-Care 01 Clinical Impression: Exacerbation of Crohn's disease - Discharge Information Prescriptions: Hydrocodone/Acetaminophen [Clayton 5-325 Tablet] 1 - 2 each PO Q6H PRN #20 tablet PRN Reason: Pain Mesalamine 4 gm RC DAILY #8 enema Ondansetron [Zofran ODT] 4 mg PO Q6H PRN #20 tab.dis PRN Reason: Nausea Referrals: Lizet Garner, BILLPOSTING SUPERVISOR [Primary Care Provider] - Additional Instructions: You were in seen in the [facility] Emergency Department for evaluation of abdominal pain, your found have an exacerbation of your underlying Crohns disease. You have been prescribed mesalamine to take daily. You have also been prescribed Zofran for nausea and Clayton for pain control. Please keep your follow-up care with Dr. Keane on 2/12/ 20. Please read and follow all of the instructions below. Please follow up with your primary care physician as needed. When calling for follow-up care, please make the office aware that this follow-up is from your recent emergency room visit. If for any reason you are refused follow-up, please contact the [facility] Emergency Department at and asked to speak to the emergency department charge nurse. Your care today was limited to identifying and treating emergent medical problems only. Many people have subtle differences in their test results that require follow up with their outpatient physician(s) to correctly determine if this represents a normal variation or concerning abnormality with respect to your specific health. The care given to you today was limited to identifying and treating emergent medical problems - you need to request a copy of all of your medical records from today's visit and follow up with your outpatient physician(s) to review both today's visit and your overall health. If you have any new symptoms or if you are at all concerned about your health please return immediately to the emergency department. Abdominal Pain The exact cause of your abdominal pain is not certain. Based upon the testing today you are felt to be at low risk for discharge. There are no current signs of a life threatening illness or injury. Your condition does not seem serious now; however, sometimes the signs of a serious problem may take more time to appear. For this reason, it is important for you to watch for any new symptoms, problems, or worsening of your condition. Over the next few days, the abdominal pain may come and go, or be continuous. Other common symptoms can include nausea and vomiting. Sometimes it can be difficult to tell if you feel nauseous , you may just feel bad and not associate that feeling with nausea. Constipation , diarrhea, and a fever may go along with the pain. The pain may continue even if treated correctly over the following days. Depending on how things go, sometimes the cause can become clear and may require further or different treatment. Additional evaluations, medications, or tests may be needed. If your symptoms do not worsen but you are still having pain after 12-24 hours, please call your primary care physician to arrange for further evaluation. Return to the emergency department if any of the following occur: Pain gets worse or moves to the right lower abdomen New or worsening vomiting or diarrhea Swelling of the abdomen Unable to pass gas or stool for more than 8 hours Fever of 100.4F (38C) or higher, or as directed by your healthcare provider. Blood in vomit or bowel movements (dark red or black color) If you have yellow skin or eyes or if you have dark brown urine. Weakness, dizziness Chest, arm, back, neck or jaw pain Unexpected vaginal bleeding or missed period Trouble breathing Confusion Fainting or loss of consciousness Rapid heart rate Seizure If you are light headed upon standing or passing out. If you are otherwise concerned about your health. Home Care Do not force yourself to eat, especially if having cramps, vomiting, or diarrhea. Water is important so you do not get dehydrated. Soup may also be good. Sports drinks may also help, especially if they are not too acidic. Make sure you don't drink sugary drinks as this can make things worse. Take liquids in small amounts. Caffeine sometimes makes the pain and cramping worse. Avoid dairy products if you have vomiting or diarrhea. Don't eat large amounts at a time. Wait a few minutes between bites. Eat a diet low in fiber (called a low-residue diet). Foods allowed include refined breads, white rice, fruit and vegetable juices without pulp, tender meats. These foods will pass more easily through the intestine. Avoid whole-grain foods, whole fruits and vegetables, meats, seeds and nuts, fried or fatty foods, dairy, alcohol and spicy foods until your symptoms go away. Hydrocodone/Acetaminophen (Brand Names: Clayton, Vicodin) Take as directed on the prescription for relief of pain. This product contains acetaminophen (Tylenol) do not use it with other Acetaminophen containing medications. This drug may cause mild nausea, if so you may take it with a small snack. This drug will cause constipation, if you experience a decrease in bowel movements purchase "Senna-S" (sennasides and docusate) which is available over the counter at pharmacies and take as directed on the bottle. Call your physician if you have not had bowel movemen in two days. This drug may cause fatigue - do not drive or engage in other hazardous activities when using this medication. Do no drink alcohol when using this medication. Store this drug safely, it is a high risk medication if misused. SIDE EFFECTS: Tell your doctor immediately if any of these unlikely but serious side effects occur: mental/mood changes, severe stomach/abdominal pain, difficulty urinating. Seek immediate medical attention if any of these rare but serious side effects occur: fainting, seizure, slow/shallow breathing, unusual drowsiness/difficulty waking up. Taking more than the recommended dose of acetaminophen may cause serious (possibly fatal) liver disease. Seek immediate medical attention if you have any symptoms of liver damage, including: dark urine, persistent nausea/vomiting, stomach/abdominal pain, yellowing eyes/skin. A very serious allergic reaction to this drug is rare. However, seek immediate medical attention if you notice any symptoms of a serious allergic reaction, including: rash, itching/swelling (especially of the face/tongue/throat), severe dizziness, trouble breathing. This is not a complete list of possible side effects. PRECAUTIONS: Before taking this medication, tell your doctor or pharmacist if you are allergic to it; or to other narcotics (such as morphine, codeine); or if you have any other allergies. This product may contain inactive ingredients, which can cause allergic reactions or other problems. Talk to your pharmacist for more details. Before using this medication, tell your doctor or pharmacist your medical history, especially of: brain disorders (such as head injury, tumor , seizures), breathing problems (such as asthma, sleep apnea, chronic obstructive pulmonary disease-COPD), kidney disease, liver disease, mental/mood disorders (such as confusion, depression), personal or family history of regular use/abuse of drugs/alcohol, stomach/intestinal problems (such as blockage, constipation, diarrhea due to infection, paralytic ileus), difficulty urinating (such as due to enlarged prostate). This drug may make you dizzy or drowsy. Avoid alcoholic beverages. Acetaminophen may cause liver damage. Daily use of alcohol, especially when combined with acetaminophen, may increase your risk for liver damage. Caution is advised if you have diabetes, alcohol dependence, liver disease, phenylketonuria (PKU), or any other condition that requires you to limit/avoid these substances in your diet. Ask your doctor or pharmacist about using this product safely. Older adults may be more sensitive to the effects of this drug, especially dizziness, drowsiness, urinary problems. During , this medication should be used only when clearly needed. Using it for long periods or in high doses near the expected delivery date is not recommended because of the potential for harm to the unborn baby. Discuss the risks and benefits with your doctor. Babies born to mothers who have used this medication for an extended time may have withdrawal symptoms such as irritability, abnormal/persistent crying, vomiting, or diarrhea. If you notice any of these symptoms in your , tell the doctor promptly. This medication passes into breast milk and may rarely have undesirable effects on a nursing . Tell the doctor immediately if your baby develops unusual sleepiness, difficulty feeding, or trouble breathing. Consult your doctor before breast-feeding. Ondansetron (Brand Name: Zofran) Take one tablet every 6 hours as needed for nausea SIDE EFFECTS: Headache, fever, lightheadedness, dizziness, drowsiness, tiredness , constipation. If these effects persist or worsen, notify your doctor promptly. Many people using this medication do not have serious side effects. Tell your doctor right away if you have any serious side effects, including: stomach pain, muscle stiffness/spasm, vision changes (e.g., temporary loss of vision, blurred vision, uncontrollable eye movements). Get medical help right away if any of these rare but very serious side effects occur: chest pain, fainting, slow/fast/irregular heartbeat. A very serious allergic reaction to this drug is rare. However, get medical help right away if you notice any of the following symptoms of a serious allergic reaction: rash, itching/swelling ( especially of the face/tongue/throat), severe dizziness, trouble breathing. This is not a complete list of possible side effects. If you notice other effects not listed above, contact your doctor or pharmacist. PRECAUTIONS: Before using ondansetron, tell your doctor or pharmacist if you are allergic to it; or to other serotonin blockers (e.g., granisetron); or if you have any other allergies. This product may contain inactive ingredients, which can cause allergic reactions or other problems. Talk to your pharmacist for more details. Before using this medication, tell your doctor or pharmacist your medical history, especially of: irregular heartbeat, liver disease, stomach /intestinal problems (e.g., recent abdominal surgery, ileus, swelling). Ondansetron may cause a condition that affects the heart rhythm (QT prolongation ). QT prolongation can infrequently result in serious (rarely fatal) fast/ irregular heartbeat and other symptoms (such as severe dizziness, fainting) that require immediate medical attention. The risk of QT prolongation may be increased if you have certain medical conditions or are taking other drugs that may affect the heart rhythm (see also Drug Interactions section). Before using ondansetron, tell your doctor or pharmacist if you have any of the following conditions: certain heart problems (heart failure, slow heartbeat, QT prolongation in the EKG), family history of certain heart problems (QT prolongation in the EKG, sudden cardiac ). Low levels of potassium or magnesium in the blood may also increase your risk of QT prolongation. This risk may increase if you use certain drugs (such as diuretics/"water pills") or if you have conditions such as severe sweating, diarrhea, or vomiting. Talk to your doctor about using ondansetron safely. This drug may make you dizzy or drowsy or cause blurred vision. Do not drive, use machinery, or do any activity that requires alertness or clear vision until you are sure you can perform such activities safely. Limit alcoholic beverages. Infants younger than 5 months may be more sensitive to the effects of this drug, especially diarrhea. During , this medication should be used only when clearly needed. Discuss the risks and benefits with your doctor. It is not known if this drug passes into breast milk. Consult your doctor before breast-feeding. DRUG INTERACTIONS: Drug interactions may change how your medications work or increase your risk for serious side effects. This document does not contain all possible drug interactions. Keep a list of all the products you use (including prescription/nonprescription drugs and herbal products) and share it with your doctor and pharmacist. Do not start, stop, or change the dosage of any medicines without your doctor's approval. Some products that may interact with this drug include: apomorphine, tramadol. Many drugs besides ondansetron may affect the heart rhythm (QT prolongation), including dofetilide, pimozide, procainamide, amiodarone, quinidine, sotalol, macrolide antibiotics (such as erythromycin), among others. Therefore, before using ondansetron, report all medications you are currently using to your doctor or pharmacist. Prescriptions: If you are uninsured or have financial difficulties with filling your prescription(s), you may consider using a free pharmacy discount service such as [employer] ([employer]) or [employer] ([employer]). These services allow you to search for a medication on your phone (or computer) and obtain a coupon that usually has a significant discount from the list ragland at a pharmacy. Your physician as well as [facility] does not have a financial relationship with either of these services. You may also wish to speak with your physician to determine if lower cost prescriptions are possible. Obtaining primary care: 1. [facility] ([facility]), family medicine (children, adults, and some obstetrical care), and internal medicine (adults). Further specialty care is also available. Same day appointments are available. They may be contacted at [phone] and are open Wednesday through Wednesday 8 AM to 5 PM. The [facility] are located at [facility], [address] [place] [address]. 2. [facility] offers family medicine, internal medicine, womens health, and further specialty care. [facility] may be contacted at [phone]. [facility] is located at [address] [place], [address]. 3. If you have health insurance, please also contact your insurer for a list of accepting providers under your policy, you may contact these providers for further health care. Occupational health: Work related injuries may consider following up with [facility], . Occupational health services are located at [address] [place] [address] and are open Wednesday through Wednesday from 7: 30 am to 5:00 pm. Obstetrical and Gynecological Care: [facility], , Wednesday through Wednesday 8 AM to 5 PM. [address] [place] [address]. Eyecare: If you have an eye injury you should follow up with your skills auditor or with [facility], at [phone] or [phone] , they are located at [address] [place] [address]. [facility] DDS. [address] [place], [place]. Ph. [phone] Lonny Faith DDS MS. [address] [facility] [address], [place], [place]. Ph. Bradley Lozano DDS. 10 05/[address] [place] [address], [place], [place]. Ph. [phone] Rhys Wilson DDS. [address] [facility] [address] [place], [place]. Ph. [phone] Jeronimo Marrero DDS PC. [address] [facility] [address] [place], [place]. Ph. [phone] Rad Lott DDS. [address] [facility]. Ph. [phone] [facility]. [address] [place], [place]. Ph. [phone] [facility]. [address], [place], [place]. Ph. [phone] [facility] [address] [place] [phone]. Ph. [facility]. [address] [place] [address] [address] [place], [place]. Ph. [facility]. [address], [place], [place]. Ph. Sepsis Event Note - Evaluation Sepsis Screening Result: No Definite Risk - Focused Exam Vital Signs: Vital Signs Temp Pulse Resp BP Pulse Ox 06/11/19 21:55 93 16 128/78 100 06/11/19 20:19 36.7 C 118 H 18 128/91 H 97 Date Exam was Performed: 06/11/19 Time Exam was Performed: 23:42 - My Orders Last 24 Hours: My Active Orders 06/11/19 20:36 HYDROmorphone [Dilaudid] 0.5 - 1 mg IVPUSH Q1H PRN 06/11/19 22:44 Sodium Chloride 0.9% [Normal Saline] 1,000 ml IV .Bolus 06/11/19 22:45 Communication Order [RC] STAT - Assessment/Plan Last 24 Hours: My Active Orders 06/11/19 20:36 HYDROmorphone [Dilaudid] 0.5 - 1 mg IVPUSH Q1H PRN 06/11/19 22:44 Sodium Chloride 0.9% [Normal Saline] 1,000 ml IV .Bolus 06/11/19 22:45 Communication Order [RC] STAT
[2019-06-12 00:06] VITALS: PULSE 98
== END 2019-06-12 00:03 | disposition home or self-care (01) ==
LOC: MW.ED 20:05
DX: K50.90 Crohn's disease, unspecified, without complications (principal); J45.909 Unspecified asthma, uncomplicated; F41.9 Anxiety disorder, unspecified; F32.9 Major depressive disorder, single episode, unspecified; Z87.891 Personal history of nicotine dependence; Z88.2 Allergy status to sulfonamides; Z91.018 Allergy to other foods; Z88.8 Allergy status to other drugs, medicaments and biological substances; Z79.899 Other long term (current) drug therapy
CPT/HCPCS: 36415; 74177; 80053; 80305; 81001; 83605; 83690; 85025; 85652; 86140; 96361; 96374; 96375; 99284; A9270; J1170; J2405; J7030; Q9967; 99283